=== PATIENT | male | born 1985 | race Caucasian/White ===

== ENCOUNTER 2017-10-14 01:22 | Inpatient (IN) | payer OTHER ==
[2017-10-14 02:39] LABS: #Basophils 0.1 thou/uL (0.0-0.2); #Eosinphils 0.1 thou/uL (0.0-0.7); #Monocytes 0.9 thou/uL (0.11-0.59); #Neutrophils 10.7 thou/uL (1.40-6.50); %Basophils 0.4 % (0.0-1.0); %Eosinophils 0.9 % (0.0-10.0); %Lymphocytes 14.4 % (21.0-51.0); %Monocytes 6.2 % (0.0-10.0); Hemoglobin 14.3 g/dL (14.0-18.0); Mean Corpuscular HGB CONC 33.4 g/dL (32.0-36.0); Mean Platelet Volume 6.5 fL (7.4-10.4); Platelet Count 230 thou/uL (130-400); RBC Distribution Width 12.2 % (11.5-14.5); Red Blood Cell (RBC) Count 4.92 mill/uL (4.70-6.10); White Blood Cell (WBC) Count 13.8 thou/uL (4.8-10.8)
[2017-10-14 02:58] LABS: ALT (SGPT) 29 U/L (8-55); AST (SGOT) 12 U/L (5-34); Albumin 4.4 g/dL (3.5-5.0); Alkaline Phosphatase 73 U/L (40-150); Anion Gap 12 mmol/L (10-20); BUN (Urea Nitrogen) 9 mg/dL (8.9-20.6); Bilirubin, Total 0.4 mg/dL (0.2-1.2); Calc. Creatinine Clearance 0 mL/min (70-130); Calcium 9.4 mg/dL (7.8-10.44); Carbon Dioxide 24 mmol/L (22-29); Chloride 106 mmol/L (98-107); Estimated GFR-MDRD Greater than 90; Globulin 2.2 g/dL (2.4-3.5); Glucose 105 mg/dL (70-105); Lipase 10 U/L (8-78); Potassium 4.4 mmol/L (3.5-5.1); Protein, Total 6.6 g/dL (6.0-8.3); Sodium 138 mmol/L (136-145)
[2017-10-14 04:22] LABS: Acetaminophen Less than 6.0 mcg/mL (10.0-30.0); Alcohol Less than 10 mg/dL (Less than 10); Salicylate Less than 8.0 mg/dL (15.0-30.0)
[2017-10-14 04:27] LABS: Troponin I Less than 0.010 ng/mL (< 0.028)
--- NOTE | 2017-10-14 04:42 | HP ---
REQUESTING PHYSICIAN: Dr. Graves. ATTENDING SURGEON: Dr. Michel. CONSULTATIONS: None. HISTORY OF PRESENT ILLNESS: Patient is a 31-year-old man who was reportedly running this evening down a driveway when he fell into a culvert, landing on some large rocks. The patient was initially taken to the emergency department in [place] by ground EMS because he was found by family members and stated to have a short period of altered mental status and possible loss of consciousness, abrasions, and contusions and abdominal pain. The patient underwent evaluation and examination and then was noted to have a negative head and neck CT, but his chest, abdomen, and pelvis showed changes in the right lower quadrant that upon review of the CT and dictation by the radiologist, it appears that these changes are congenital and not acute, but the patient was subsequently transferred here. Due to these findings and a possible postconcussive syndrome, at which time, we were asked to evaluate the patient for admission. While in the emergency department, the patient attempted to push himself up on the bed and essentially vagal down with a heart rate of the low 40s to one point into the 30s. The patient became symptomatic and this lasted greater than 30 minutes. The patient did not require any atropine and eventually would maintain his heart rate in the high 50s to low 60s, and his systolic blood pressure would stay above 100. The patient would undergo repeat chest, abdomen , and pelvis exam per the ER doctor's orders, the patient had a repeat negative FAST exam, his hemoglobin here was 14 and his abdominal pain had not changed. MEDICATIONS: None. ALLERGIES: None. PAST SURGICAL HISTORY: Bilateral eye surgery as an . PAST MEDICAL HISTORY: Patient has a congenitally absent corpus callosum and colpocephaly, and history of seizure disorders. Father reports that patient had 2 seizures, the last one was greater than 10 years ago. FAMILY MEDICAL HISTORY: Hypertension. REVIEW OF SYSTEMS: Ten-point review of systems is negative, unless otherwise stated. PHYSICAL EXAMINATION: VITAL SIGNS: Current vital signs heart rate 63, blood pressure 108/66, respirations 17, oxygen saturation is 100% on 2 liters via nasal cannula, temperature is 98.1. GENERAL: Upon my initial exam, he was resting comfortably. He was alert and oriented x3. Yaniv coma scale was 15. His chief complaint was diffuse abdominal pain. HEAD: Head is normocephalic. He does have small abrasion to his forehead that appears superficial in nature and did not require repair. EYES: Extraocular motion intact. PERRLA bilaterally. Patient does have an area of periorbital ecchymosis of the infraorbital area of his left eye with minimal tenderness to palpation. EARS: Atraumatic without discharge. NOSE: Atraumatic without discharge. OROPHARYNX: Clear. NECK: Nontender. Trachea is midline. No JVD. CHEST: Clear to auscultation with good inspiratory and expiratory effort. HEART: Regular rate and rhythm with some bradycardia. ABDOMEN: Primarily bilateral upper quadrant tenderness to palpation with active bowel sounds and the patient does have scattered abrasions and contusions on his anterior abdomen. Pelvis is stable. EXTREMITIES: Contusions and abrasions to both anterior knees with minimal tender to palpation. Patient has full active range of motion. Abrasions to bilateral hands with full active range of motion, and the patient is neurovascularly intact x4. BACK: Nontender and atraumatic. LABORATORY FINDINGS: White blood cell count 13.8, hemoglobin 14.3, hematocrit 42.8, platelets 230. Sodium 139, potassium 4.4, chloride 106, CO2 of 24, BUN 9 , creatinine 0.82, glucose 105. LFTs are unremarkable. Lactic acid 0.7, lipase 10. Cardiac enzymes are pending. Urine drug screen and TSH are also pending. CT findings: CT of the brain without contrast shows, 1. Agenesis of corpus callosum and colpocephaly. 2. No acute intracranial findings. CT of the C-spine without contrast shows no evidence of acute fracture or acute traumatic subluxation. CT of the chest, abdomen, and pelvis shows an aberrant right subclavian artery, otherwise unremarkable chest CT. 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 This does not appear to be an acute finding with no surrounding soft tissue changes and no extravasation of contrast. Also, of note, when the CT was done, the patient's chief complaint was left upper quadrant pain, all of these findings were in the right lower quadrant. ASSESSMENT AND PLAN: 1. Status post fall. 2. Abdominal pain with abdominal CT changes of undermined nature. 3. Postconcussive syndrome. 4. Symptomatic bradycardia likely vagal in nature. PLAN: We will await the results of the remaining lab work and repeat of his chest, abdomen, and pelvis exams. We will give him fluid hydration and also give him 1 liter of lactated Ringer's with 3 amps of sodium bicarbonate in light of his second dye load we will attempt to alkalize his urine for renal protection. Because of the prolonged episode of symptomatic bradycardia, we will admit the patient to the IMCU and follow up his labs in the morning. The case will be discussed with Dr. Michel, once I have all of his labs and radiographs back sooner as needed. DORCAS
[2017-10-14] MEDS ORDERED: Fentanyl 250 MCG/5 ML VIAL ONE (05:04)
[2017-10-14 06:03] LABS: Amphetamine Not Detected (NotDetected); Barbiturates Screen Not Detected (NotDetected); Benzodiazepine Screen Not Detected (NotDetected); Cocaine Metabolite Screen Not Detected (NotDetected); Medtox Control Line Valid? VALID (VALID); Medtox Reader # READER 1; Methadone Not Detected (NotDetected); Methamphetamine Not Detected (NotDetected); Opiate Screen Not Detected (NotDetected); Oxycodone Screen Not Detected (NotDetected); Phencyclidine (PCP) Not Detected (NotDetected); THC/Cannabinoid Screen Not Detected (NotDetected); Tricyclic Screen Not Detected (NotDetected)
[2017-10-14 06:25] LABS: INR-International Normal Ratio 1.3; PTT 27.1 SEC (22.9-36.1); Prothrombin Time 16.5 SEC (12.0-14.7)
[2017-10-14 06:28] LABS: #Eosinphils 0.1 thou/uL (0.0-0.7); #Lymphocytes 1.8 thou/uL (1.20-3.40); #Monocytes 1.1 thou/uL (0.11-0.59); #Neutrophils 13.5 thou/uL (1.40-6.50); %Basophils 0.2 % (0.0-1.0); %Eosinophils 0.4 % (0.0-10.0); %Lymphocytes 11.2 % (21.0-51.0); %Monocytes 6.5 % (0.0-10.0); %Neutrophils 81.7 % (42.0-75.0); Hemoglobin 9.9 g/dL (14.0-18.0); Mean Corpuscular HGB CONC 33.5 g/dL (32.0-36.0); Mean Corpuscular Hemoglobin 29.4 pg (27.0-31.0); Mean Corpuscular Volume 87.6 fl (80.0-94.0); Mean Platelet Volume 6.6 fL (7.4-10.4); Platelet Count 208 thou/uL (130-400); RBC Distribution Width 12.1 % (11.5-14.5); Red Blood Cell (RBC) Count 3.35 mill/uL (4.70-6.10); White Blood Cell (WBC) Count 16.5 thou/uL (4.8-10.8)
[2017-10-14] MEDS ORDERED: Propofol 1,000 MG/100 ML VIAL IV ONE (07:08)
[2017-10-14] MEDS ORDERED: Ondansetron HCl/PF 4 MG/2 ML Vial IVP PRN (07:25)
[2017-10-14] MEDS ORDERED: Dextrose 50% Abboject 50 ML SYRINGE SLOW IVP PRN (07:25)
[2017-10-14] MEDS ORDERED: Sodium Chloride 0.9% 1,000 ML IV SCH (07:25)
[2017-10-14] MEDS ORDERED: traMADol HCl 50 MG TAB PO PRN (07:25)
[2017-10-14] MEDS ORDERED: Ondansetron ODT 4 MG TAB PO PRN (07:25)
[2017-10-14] MEDS ORDERED: Ventilator Sedation Protocol 1 EACH FS SCH (07:25)
[2017-10-14] MEDS ORDERED: Promethazine HCl 25 MG/ML VIAL IM PRN ×2 (07:25)
[2017-10-14] MEDS ORDERED: Dextrose 5% in Water 1,000 ML IV PRN (07:25)
[2017-10-14] MEDS ORDERED: Propofol 1,000 MG/100 ML VIAL IV PRN (07:37)
[2017-10-14] MEDS ORDERED: Fentanyl BOLUS 250 ML IVPB PRN (07:37)
[2017-10-14] MEDS ORDERED: DISCONTINUE PREVIOUS NARCOTIC PAIN MEDICATIONS AND BENZODIAZEPINES FS SCH (07:37)
[2017-10-14] MEDS ORDERED: fentaNYL Citrate/PF 2,000 MCG in Sodium Chloride 0.9% 60 ML IV SCH (07:37)
[2017-10-14] MEDS ORDERED: Morphine 2 MG/ML SYRINGE SLOW IVP PRN (07:37)
[2017-10-14] MEDS ORDERED: Lorazepam 2 MG/ML VIAL SLOW IVP PRN (07:37)
[2017-10-14] MEDS ORDERED: Sodium Bicarbonate 150 MEQ in Dextrose 5% in Water 1,000 ML IV SCH (07:45)
[2017-10-14] MEDS ORDERED: Morphine 4 MG/ML VIAL SLOW IVP PRN ×3 (07:45→21:03)
[2017-10-14 07:57] LABS: CO2 Tension 41.1 mmHg (35.0-45.0); O2 Tension (PaO2) 102.7 mmHg (80.0-100.0)
[2017-10-14 07:58] LABS: Actual Bicarbonate (HCO3a) 19.4 mEq/L (22-26); Analyzer IN Cardio ER; Base Excess (BEa) -6.7 mEq/L (0 (+/-) 2.5); Calcium, Ionized 1.2 mmol/L (1.12-1.30); Hematocrit-ABG 31.8 % (42.0-52.0); Hemoglobin (Hb) 10.9 g/dL (14.0-18.0)
[2017-10-14 07:59] LABS: ALV-art Gradient 59.825 (0-20); Puncture Site A-LINE
--- NOTE | 2017-10-14 08:07 | CT ---
PRELIMINARY REPORT/[facility]/EMERGENCY AFTER HOURS PROCEDURE: EXAM: CT Head Without Intravenous Contrast CLINICAL HISTORY: 31 years old, male; Injury or trauma; Fall; Follow-up exam; Wound, open; Without loss of consciousnes s; Forehead; Without residual foreign body; Patient HX: 31 yo wm pmh congenitally absent corpus callo sum. Presents as transfer from [place] after falling into ditch and landing on several large anuj ks. Fall occurred approximately 2114. Denies loc. Reports midepigastric pain. Head and neck CT scan n egative. 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 COMPARISON: No relevant prior studies available. FINDINGS: Brain: Question minimal midline hyperdensity images 17-18 Mild volume loss No significant white matter disease. No edema. Ventricles: Parallel orientation with colpocephaly noted in keeping with presumed callosal dysgenesis No ventriculomegaly. Bones/joints: Unremarkable. No acute fracture. Soft tissues: Unremarkable. Sinuses: Unremarkable as visualized. No acute sinusitis. Mastoid air cells: Unremarkable as visualized. No mastoid effusion. IMPRESSION: Question minimal midline hyperdensity in image 17-18. 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 Comparison with prior images would be helpful. Otherwise, non-urgent evaluation with MRI may be helpful Thank you for allowing us to participate in the care of your patient. Dictated and Authenticated by: Hudson Longo MD 10/14/2017 4:48 AM Central Time ([place] & [place]) FINAL INTERPRETATION HEAD CT WITHOUT CONTRAST: 10/14/2017 HISTORY: Trauma. Pain. Altered mental status. COMPARISON: 10/13/2017 FINDINGS: Minimal midline hyperdensity noted on images 17 and 18, which could signify minimal small volume extr aaxial blood or vascular density. Agenesis of the corpus callosum noted. No midline shift or mass e ffect. The imaged paranasal sinuses and mastoid air cells are well aerated. No displaced calvarial fracture. IMPRESSION: 1. Findings suggesting agenesis of the corpus callosum. 2. Minimal midline hyperdensity may signify vascular density calcification or minimal extraaxial hem orrhage. This could be better assessed via a follow-up CT or MRI. POS: [facility]
[2017-10-14] MEDS ORDERED: Succinylcholine Chloride 20 MG/ML 10 ml SYRINGE FS ONE (08:10)
[2017-10-14] MEDS ORDERED: PROPOFOL 200 MG/20 ML VIAL ONE (08:10)
[2017-10-14] MEDS ORDERED: Calcium Chloride 1 GM/10 ML Abboject SYRINGE ONE (08:10)
[2017-10-14] MEDS ORDERED: Lidocaine 1% PF 5 ML VIAL ONE (08:10)
--- NOTE | 2017-10-14 08:39 | OP ---
DATE OF PROCEDURE: 10/14/2017 PREOPERATIVE DIAGNOSIS: Intraabdominal hemorrhage with hemodynamic instability. POSTOPERATIVE DIAGNOSIS: Intraabdominal hemorrhage with hemodynamic instability with finding of blee ding distal small bowel mesenteric artery. OPERATIONS PERFORMED: Exploratory laparotomy, evacuation of 2600 mL of peritoneal blood, small bowel resection with primary stapled anastomosis, placement of left subclavian 7 Moldovan triple-lumen centr al line. SURGEON: Loki Michel M.D. CHAPERONE: Alex Nesbitt PA-C ANESTHESIA: General endotracheal. INDICATIONS: The patient is a 31-year-old white male. He had fallen between 4 and 6 feet into a claire ine earlier this evening. 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 He subsequently became hemodynamically unsta ble and CT scan subsequently revealed intraabdominal hemorrhage. He was taken emergently to the oper ating room. After being transfused with 1 unit of packed red blood cell and some IV fluid, he stabil ized. He never was tachycardic, but only hypotensive. DESCRIPTION OF PROCEDURE: The patient was taken emergently to the operating room. When I arrived, h e was in the operating room and was hemodynamically stable and alert and interactive. He moved all e xtremities and had appropriate diffuse tenderness in his abdomen with examination, but without gross distention. He is somewhat overweight and therefore this could cloud the presentation picture. General endotracheal anesthesia was obtained with the patient in supine position. Attention was turn ed to his left chest. This was prepped with ChloraPrep and draped in sterile fashion. Local anesthe tic was infiltrated and large Veress needle was passed in the clavicle and subclavian vein on the ini tial pass. Guidewire was passed into the needle, which was subsequently removed. Skin was incised, tract was dilated, 7 Moldovan triple-lumen catheter was passed over the wire without difficulty. Each of the 3 lumens aspirated blood freely and was flushed with heparinized saline. Catheter secured at skin exit site. Sterile occlusive dressing was applied. Each port aspirated blood freely and was fl ushed with heparinized saline. Abdomen was trimmed of hair, prepped with ChloraPrep, draped in sterile fashion. Low midline abdomin al incision was created. Dissection was carried through skin, subcutaneous tissue down to the fascia which was opened in the midline. Entry was gained into the abdominal cavity. There was no blood un james pressure within the abdomen while entered, but there was free blood in the abdomen. The incision was opened throughout its length and the Snyder suction device was used to aspirate the blood content s. There was also significant clot present diffusely within the abdomen in both upper quadrants as w ell as a significant amount within the central mesenteric compartment. As soon as most of the blood was aspirated, I was able to quickly identify an area of hemorrhage within the distal small bowel mes entery. This was visualized to be actively arterial pulsation. There was significant hematoma withi n the mesentery of the segment of the small bowel. This was at least a foot proximal to the ileoceca l valve. I selected 2 segments of small bowel proximal and distal that I felt would be viable after this artery was divided. The small bowel was divided into these two segments using a LENA-75 stapler. The intervening mesentery was taken down between clamps and 2-0 silk ties, and the specimen was pas sed off the field. When I later examined the resection margins, I took an additional proximal margin secondary to the examination of the vascular arcades. The second margin was an additional 3 or 4 in ches. After the segment was removed, the abdomen was then fully explored. I inspected liver, spleen, stoma ch, small bowel throughout and the colon as well as all areas could be visualized and palpated. The remainder of the retroperitoneum was inspected. There was no evidence of active bleeding or extravas ation from any location. There is no evidence of other hematoma formation. The abdomen was then irr igated with 4 or 5 liters of warm saline and all irrigant was aspirated. I then inspected one final time to ensure that there was no evidence of any other bleeding. During the course of the inspection , a large volume of clot had been removed. There was about 800 mL of clot and at least 1800 mL of bl ood within the suction device that had been removed before irrigation was begun. I then created a [id number], functional end-to-end stapled anastomosis between the 2 segments of sm all bowel. The distal small bowel staple line was about 15 cm from the ileocecal valve. The common enterotomy was closed with a single fire of the LENA stapler. Mesenteric defect was closed with a run tenzin suture of 3-0 Vicryl. Staple line was buttressed with several interrupted sutures of 3-0 silk. All bowel was entirely viable without concern. The fascia was then closed with a running suture of #1 PDS. The subcutaneous tissue was thoroughly irrigated. The skin edges were loosely approximated with skin hayden with Telfa claire placed within the subcutaneous tissue and dry gauze dressing place d externally. There had been no evidence of contamination prior to division of the bowel. There had been no leakag e of bowel contents during the surgery either. There was essentially no intraoperative blood loss an d all blood found was that which was present in the abdomen at beginning the operation. The patient had remained hemodynamically stable. He was transfused with 1 additional unit of blood and 1 unit of FFP during the operation. He was taken to the Intensive Care Unit in stable condition, but still on the ventilator.
[2017-10-14] MEDS ORDERED: Famotidine 20 MG TAB PO SCH (09:00)
--- NOTE | 2017-10-14 09:08 | RAD ---
PORTABLE SUPINE FRONTAL CHEST: Date: 10/14/17 COMPARISON: None. HISTORY: Intubated patient. FINDINGS: Endotracheal tube in place, distal tip overlying the tracheal air column at the level of the clavicle s. There is a left-sided vascular catheter, distal tip overlying the cavoatrial junction region. Supi ne imaging is provided, limiting assessment for pneumothorax and pleural fluid. There is pulmonary vascular prominence. No lobar consolidation or alveolar edema. IMPRESSION: Lines and tubes as above. POS: [facility]
[2017-10-14 09:24] LABS: Anion Gap 11 mmol/L (10-20); BUN (Urea Nitrogen) 9 mg/dL (8.9-20.6); Calc. Creatinine Clearance 0 mL/min (70-130); Calcium 7.9 mg/dL (7.8-10.44); Carbon Dioxide 22 mmol/L (22-29); Chloride 110 mmol/L (98-107); Estimated GFR-MDRD Greater than 90; Glucose 204 mg/dL (70-105); Magnesium 1.8 mg/dL (1.6-2.6); Phosphorus 3.5 mg/dL (2.3-4.7); Potassium 4.1 mmol/L (3.5-5.1); Sodium 139 mmol/L (136-145)
[2017-10-14 09:53] LABS: #Lymphocytes 1.1 thou/uL (1.20-3.40); #Monocytes 1.3 thou/uL (0.11-0.59); #Neutrophils 17.2 thou/uL (1.40-6.50); %Basophils 0.1 % (0.0-1.0); %Eosinophils 0.1 % (0.0-10.0); %Lymphocytes 5.4 % (21.0-51.0); %Monocytes 6.4 % (0.0-10.0); %Neutrophils 87.9 % (42.0-75.0); Hemoglobin 10.8 g/dL (14.0-18.0); Mean Corpuscular HGB CONC 33.9 g/dL (32.0-36.0); Mean Corpuscular Hemoglobin 29.8 pg (27.0-31.0); Mean Corpuscular Volume 87.9 fl (80.0-94.0); Mean Platelet Volume 6.9 fL (7.4-10.4); Platelet Count 207 thou/uL (130-400); RBC Distribution Width 12.3 % (11.5-14.5); Red Blood Cell (RBC) Count 3.61 mill/uL (4.70-6.10); White Blood Cell (WBC) Count 19.5 thou/uL (4.8-10.8)
[2017-10-14] MEDS: Morphine 4 MG/ML VIAL SLOW IVP PRN ×2 (09:55→17:56)
[2017-10-14] MEDS: Acetaminophen 1,000 MG in Premix Bag 1 BAG IVPB SCH ×2 (09:56→13:47)
[2017-10-14] MEDS ORDERED: ISOVUE-370 76%-LOCM 1 ML ONE (10:02)
[2017-10-14 11:08] VITALS: BMI 30.4
--- NOTE | 2017-10-14 11:15 | CT ---
PRELIMINARY REPORT/[facility]/EMERGENTY AFTER-HOURS PROCEDURE EXAM: CT Abdomen and Pelvis With Intravenous Contrast CLINICAL HISTORY: 48 years old, male; Pain; Abdominal pain; Patient HX: Patient presents for evaluation of abdominal pain, patient presents for evaluation of abdominal bloating TECHNIQUE: Axial computed tomography images of the abdomen and pelvis with intravenous contrast. Coronal reformatted images were created and reviewed. CONTRAST: 85 mL of CYQ691 administered intravenously. COMPARISON: No relevant prior studies available. FINDINGS: Lower thorax: Minimal bibasilar atelectasis. Addendum created by Hudson Longo MD on 10/14/2017 5:38 AM Central Time ([place] & [place]) Aberrant right subclavian artery with normal left aortic arch is noted, a normal variant. Addendum created by Hudson Longo MD on 10/14/2017 5:09 AM Central Time ([place] & [place]) THIS REPORT CONTAINS FINDINGS THAT MAY BE CRITICAL TO PATIENT CARE. The findings were verbally communicated via telephone conference with Sumeet Graves at 5:08 AM [employer] on 10/14/2017. The findings were acknowledged and understood. Initial Report created on 10/14/2017 4:58 AM Central Time ([place] & [place]) EXAM: CT Chest With Intravenous Contrast CLINICAL HISTORY: 31 years old, male; Injury or trauma; Fall; Follow-up exam; Abrasion; Patient HX: 31 yo wm pmh congenitally absent corpus callosum. Presents as transfer from [place] after falling into ditch and landing on several large rocks. Fall occurred approximately 2114. Denies loc. Reports midepigastric pain. Head and neck CT scan negative. 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 CONTRAST: 100 mL of ISOVUE 370 administered intravenously. COMPARISON: No relevant prior studies available. FINDINGS: Lungs: Unremarkable. No mass. No consolidation. Pleural space: Unremarkable. No pneumothorax. No significant effusion. Heart: Unremarkable. No cardiomegaly. No significant pericardial effusion. Bones/joints: Unremarkable. No acute fracture. No dislocation. Soft tissues: Unremarkable. Vasculature: Unremarkable. No thoracic aortic aneurysm. Lymph nodes: Unremarkable. No enlarged lymph nodes. A small hiatal hernia is detected. IMPRESSION: No CT evidence for acute traumatic aortic injury or intrathoracic injury EXAM: CT Abdomen and Pelvis With Intravenous Contrast CLINICAL HISTORY: 31 years old, male; Injury or trauma; Fall; Follow-up exam; Abrasion; Patient HX: 31 yo wm pmh congenitally absent corpus callosum. Presents as transfer from [place] after falling into ditch and landing on several large rocks. Fall occurred approximately 2114. Denies loc. Reports midepigastric pain. Head and neck CT scan negative. 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 CONTRAST: 100 mL of ISOVUE 370 administered intravenously. COMPARISON: No relevant prior studies available. FINDINGS: ABDOMEN: Liver: Marked capsular hematoma over the liver with mild contour irregularity to the capsule in the posterior right lobe on images 53-55. Faint lacerations in the inferior right lobe cannot be complete ly excluded. No definite active bleeding Gallbladder and bile ducts: Unremarkable. No calcified stones. No ductal dilation. Pancreas: Unremarkable. No mass. No ductal dilation. Spleen: Unremarkable. No splenomegaly. Adrenals: Unremarkable. No mass. Kidneys and ureters: Unremarkable. No solid mass. No hydronephrosis. Stomach and bowel: Unremarkable. No obstruction. No mucosal thickening. Appendix: No findings to suggest acute appendicitis PELVIS: Bladder: Dense contrast noted within Reproductive: Unremarkable as visualized. ABDOMEN and PELVIS: Intraperitoneal space: Moderate hemoperitoneum. Active bleeding on images 76-81 in the right sided mesentery Bones/joints: No acute fracture. No dislocation. Soft tissues: Unremarkable. Vasculature: Unremarkable. No abdominal aortic aneurysm. Lymph nodes: Unremarkable. No enlarged lymph nodes. IMPRESSION: Right-sided mesenteric hemorrhage with active bleeding as described. Moderate hemoperitoneum Large hepatic subcapsular hematoma and possible inferior right lobe laceration. No definite active bleeding surrounding the liver Thank you for allowing us to participate in the care of your patient. Dictated and Authenticated by: Hudson Longo MD 10/14/2017 4:58 AM Central Time ([place] & [place]) FINAL REPORT CT OF CHEST AND ABDOMEN AND PELVIS PERFORMED WITH INTRAVENOUS CONTRAST ENHANCEMENT: Date: 10/14/17 HISTORY: Trauma. Patient fell into a ditch, landing on several rocks. COMPARISON: Prior day's study. FINDINGS: CT CHEST: Lungs are clear of any infiltrative process. No signs of pneumothorax. Thoracic aorta is normal in ca liber. No mediastinal or hilar adenopathy, or signs of hematoma. No rib fractures are identified. CT ABDOMEN: CT of abdomen was performed with contrast enhancement. There is a hemoperitoneum present. There is a subcapsular hematoma and what may be a small laceration involving the inferior aspect of the right lo be of the liver where the margin is somewhat indistinct. The blood appears centered around what appea rs to be an actively bleeding site within the mesentery on the right mid abdomen. This is a significa nt change since the previous examination where there is only some minimal fat stranding related to th is. The ascites is of mixed attenuation consistent with blood. The spleen, pancreas, and gallbladder regions are felt to be unremarkable. There is some slight incre ased attenuation within the gallbladder lumen. I cannot exclude sludge or small stones. Right and left adrenal glands, and right and left kidneys are normal. CT PELVIS: CT of pelvis was performed with contrast enhancement. There are some prostate calcifications. The tamanna dder is normal in appearance. CT THORACIC SPINE: CT of the thoracic spine performed with contrast is unremarkable. CT LUMBAR SPINE: CT of the lumbar spine performed with contrast is unremarkable. IMPRESSION: 1. Large hemoperitoneum, which appears to be related to an actively bleeding site within the small b owel mesentery in the right mid abdomen. 2. In addition, there is what appears to be subcapsular hematoma involving the liver. The inferior m argin of the liver is slightly indistinct and could indicate a small liver laceration. This report is in agreement with the preliminary report issued by [facility]. POS: [facility]
[2017-10-14 14:26] LABS: Anion Gap 10 mmol/L (10-20); BUN (Urea Nitrogen) 9 mg/dL (8.9-20.6); Calc. Creatinine Clearance 203 mL/min (70-130); Calcium 7.9 mg/dL (7.8-10.44); Carbon Dioxide 25 mmol/L (22-29); Chloride 106 mmol/L (98-107); Estimated GFR-MDRD Greater than 90; Glucose 146 mg/dL (70-105); Potassium 3.7 mmol/L (3.5-5.1); Sodium 137 mmol/L (136-145)
[2017-10-14] MEDS: Sodium Chloride 0.9% 1,000 ML IV SCH ×2 (15:55→23:54)
--- NOTE | 2017-10-14 18:07 | PRG ---
DATE OF SERVICE: 10/14/2017 ATTENDING PHYSICIAN: Dr. Wilfredo Méndez. SUBJECTIVE: Mr. Walters is a 31-year-old male who was admitted overnight after suffering a 4-6 feet fall into a culvert, landing on some rocks. 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 However, the patient became hemodynamically unstable. Repeat CT scan showed large volume of blood in the abdomen. He was taken to the OR for exploratory laparotomy. He had a small bowel resection secondary to a mesenteric artery bleed. He was admitted to the ICU. This morning, on exam, the patient is intubated, but opening his eyes and able to follow commands. He was extubated at bedside. OBJECTIVE: VITAL SIGNS: BP 133/74, pulse 79, temperature 98.1, respirations 16 on mechanical ventilation. GENERAL APPEARANCE: The patient is an adult male resting in bed. He is now extubated. He is still somewhat somnolent. HEENT: He is normocephalic. He has a small abrasion to his forehead that is not sutured. RESPIRATORY: The patient's breath sounds are clear to auscultation bilaterally. He is on a mechanical ventilator. CARDIOVASCULAR: He has a regular rate and rhythm. No murmurs, gallops or rubs. ABDOMEN: Surgical incision is covered. Dressing appears clean and intact. EXTREMITIES: The patient moves all extremities. He is neurovascularly intact x4. NEUROLOGIC: The patient has no focal deficits. His GCS is 15. LABORATORY DATA: Hematology: WBC is 19.5, hemoglobin 10.8, hematocrit 31.7, platelets 207. Coagulation: PT 16.5, INR 1.3, PTT 27.1. Arterial blood gas: Bicarb 19.4, pH 7.3, pCO2 41.1, pO2 102.7, base excess -6.7. Chemistry: Sodium 139, potassium 4.1, chloride 110, bicarbonate 22, BUN 9, creatinine 0.76 , glucose 204, calcium 7.9, phosphorus 3.5, magnesium 1.8. Toxicology: His toxicology screen was negative. IMAGING: Chest x-ray: Endotracheal tube in place, distal tip overlying the tracheal air column at the level of the clavicles. There is left-sided vascular catheter, distal tip overlying the cavoatrial junction region. Supine imaging is provided, limiting assessment for pneumothorax and pleural fluid. ASSESSMENT AND PLAN: 1. Status post fall from 4-6 feet. 2. Mesenteric artery injury. 3. Status post partial small bowel resection. 4. Postconcussive syndrome. 5. Acute traumatic insert and postsurgical pain. PLAN: 1. The patient extubated at bedside this morning. 2. Bicarbonate drip at 150 mL per hour. 3. We will recheck chemistry this afternoon after his bicarbonate drip is finished and then reassess fluid needs from there. 4. The patient should be out of bed to chair as possible today. The patient should use incentive spirometry. 5. The patient will continue to be n.p.o. Anticipate that he may eat tomorrow. This patient was seen and examined along with Dr. Wilfredo Méndez on rounds this morning, who agrees with the assessment and plan. DORCAS
[2017-10-14] MEDS ORDERED: Famotidine/PF 20 mg/2ml Vial SLOW IVP SCH (21:00)
[2017-10-14] MEDS: Famotidine 40 MG/4 ML VIAL SLOW IVP SCH (21:23)
[2017-10-14] MEDS ORDERED: Acetaminophen 1,000 MG in Premix Bag 1 BAG IVPB SCH (23:59)
[2017-10-15] MEDS: Acetaminophen 1,000 MG in Premix Bag 1 BAG IVPB SCH ×4 (02:00→20:26)
[2017-10-15 04:57] LABS: Anion Gap 9 mmol/L (10-20); BUN (Urea Nitrogen) 9 mg/dL (8.9-20.6); Calc. Creatinine Clearance 208 mL/min (70-130); Calcium 8.1 mg/dL (7.8-10.44); Carbon Dioxide 27 mmol/L (22-29); Chloride 109 mmol/L (98-107); Estimated GFR-MDRD Greater than 90; Glucose 104 mg/dL (70-105); Magnesium 1.8 mg/dL (1.6-2.6); Phosphorus 2.8 mg/dL (2.3-4.7); Potassium 3.5 mmol/L (3.5-5.1); Sodium 141 mmol/L (136-145)
[2017-10-15 06:49] LABS: #Monocytes 1.3 thou/uL (0.11-0.59); %Basophils 0.1 % (0.0-1.0); %Eosinophils 0.3 % (0.0-10.0); %Monocytes 13.8 % (0.0-10.0); %Neutrophils 64.8 % (42.0-75.0); Hemoglobin 8.4 g/dL (14.0-18.0); Mean Corpuscular HGB CONC 33.6 g/dL (32.0-36.0); Mean Corpuscular Hemoglobin 29.5 pg (27.0-31.0); Mean Corpuscular Volume 87.8 fl (80.0-94.0); Platelet Count 167 thou/uL (130-400); RBC Distribution Width 12.6 % (11.5-14.5); Red Blood Cell (RBC) Count 2.84 mill/uL (4.70-6.10); White Blood Cell (WBC) Count 9.3 thou/uL (4.8-10.8)
[2017-10-15] MEDS: Morphine 4 MG/ML VIAL SLOW IVP PRN ×2 (08:04→12:22)
[2017-10-15] MEDS: Sodium Chloride 0.9% 1,000 ML IV SCH ×3 (08:07→20:26)
[2017-10-15] MEDS: Famotidine 40 MG/4 ML VIAL SLOW IVP SCH ×2 (08:46→20:26)
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
[2017-10-15] MEDS ORDERED: Sodium Chloride 0.9% 500 ML IVPB SCH (18:30)
[2017-10-16] MEDS: Morphine 4 MG/ML VIAL SLOW IVP PRN (01:01)
[2017-10-16] MEDS: Sodium Chloride 0.9% 1,000 ML IV SCH ×2 (01:01→21:28)
[2017-10-16] MEDS: Acetaminophen 1,000 MG in Premix Bag 1 BAG IVPB SCH (03:50)
[2017-10-16] MEDS: Famotidine 40 MG/4 ML VIAL SLOW IVP SCH (09:03)
[2017-10-16] MEDS ORDERED: Morphine 4 MG/ML VIAL SLOW IVP PRN (10:04)
[2017-10-16 10:42] LABS: #Eosinphils 0.1 thou/uL (0.0-0.7); #Lymphocytes 1.6 thou/uL (1.20-3.40); #Monocytes 0.8 thou/uL (0.11-0.59); #Neutrophils 7.5 thou/uL (1.40-6.50); %Basophils 0.3 % (0.0-1.0); %Eosinophils 1.1 % (0.0-10.0); %Lymphocytes 15.7 % (21.0-51.0); %Neutrophils 74.9 % (42.0-75.0); Hemoglobin 8.3 g/dL (14.0-18.0); Mean Corpuscular HGB CONC 32.3 g/dL (32.0-36.0); Mean Corpuscular Hemoglobin 28.8 pg (27.0-31.0); Mean Corpuscular Volume 89.1 fl (80.0-94.0); Mean Platelet Volume 6.6 fL (7.4-10.4); Platelet Count 174 thou/uL (130-400); RBC Distribution Width 12.3 % (11.5-14.5); Red Blood Cell (RBC) Count 2.88 mill/uL (4.70-6.10)
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
[2017-10-16 11:08] LABS: Anion Gap 14 mmol/L (10-20); BUN (Urea Nitrogen) 5 mg/dL (8.9-20.6); Calc. Creatinine Clearance 242 mL/min (70-130); Calcium 8.5 mg/dL (7.8-10.44); Carbon Dioxide 19 mmol/L (22-29); Chloride 109 mmol/L (98-107); Estimated GFR-MDRD Greater than 90; Glucose 84 mg/dL (70-105); Magnesium 1.8 mg/dL (1.6-2.6); Phosphorus 1.9 mg/dL (2.3-4.7); Potassium 3.3 mmol/L (3.5-5.1); Sodium 139 mmol/L (136-145)
[2017-10-16] MEDS ORDERED: Potassium Phosphate 9 MMOL in Sodium Chloride 0.9% 250 ML 250 ML IVPB SCH (12:00)
[2017-10-16] MEDS ORDERED: Sodium Chloride 0.9% 1,000 ML IV SCH (18:54)
[2017-10-16] MEDS: Ascorbic Acid 500 mg Chewable Tablet PO SCH (20:02)
[2017-10-16] MEDS: Famotidine/PF 20 mg/2ml Vial SLOW IVP SCH (20:02)
[2017-10-17 04:30] LABS: Anion Gap 12 mmol/L (10-20); BUN (Urea Nitrogen) 5 mg/dL (8.9-20.6); Calc. Creatinine Clearance 231 mL/min (70-130); Calcium 8.7 mg/dL (7.8-10.44); Carbon Dioxide 19 mmol/L (22-29); Chloride 110 mmol/L (98-107); Estimated GFR-MDRD Greater than 90; Glucose 87 mg/dL (70-105); Magnesium 1.9 mg/dL (1.6-2.6); Potassium 3.4 mmol/L (3.5-5.1); Sodium 138 mmol/L (136-145)
[2017-10-17] MEDS ORDERED: Potassium Chloride 20 MEQ/100 ML PREMIX BAG IVPB SCH (07:15)
[2017-10-17] MEDS: Famotidine/PF 20 mg/2ml Vial SLOW IVP SCH (08:25)
[2017-10-17] MEDS: Ferrous Sulfate 325 MG TAB PO SCH ×2 (08:25→17:32)
[2017-10-17] MEDS: Ascorbic Acid 500 mg Chewable Tablet PO SCH ×2 (08:25→21:31)
[2017-10-17] MEDS ORDERED: Enoxaparin Sodium 40 MG/0.4 ML SYRINGE SC SCH ×2 (09:00→10:45)
[2017-10-17] MEDS ORDERED: Amlodipine 5 MG TAB PO SCH (10:45)
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
[2017-10-17 19:03] LABS: Anion Gap 10 mmol/L (10-20); BUN (Urea Nitrogen) 4 mg/dL (8.9-20.6); Calc. Creatinine Clearance 246 mL/min (70-130); Calcium 8.6 mg/dL (7.8-10.44); Carbon Dioxide 24 mmol/L (22-29); Chloride 107 mmol/L (98-107); Estimated GFR-MDRD Greater than 90; Glucose 97 mg/dL (70-105); Phosphorus 2.1 mg/dL (2.3-4.7); Potassium 3.2 mmol/L (3.5-5.1); Sodium 138 mmol/L (136-145)
[2017-10-17] MEDS: Famotidine 20 MG TAB PO SCH (21:31)
[2017-10-18] MEDS ORDERED: traMADol HCl 50 MG TAB PO PRN ×2 (07:09)
[2017-10-18] MEDS ORDERED: Acetaminophen 500 MG TAB PO PRN (07:09)
[2017-10-18] MEDS: Ascorbic Acid 500 mg Chewable Tablet PO SCH (08:01)
[2017-10-18] MEDS: Famotidine 20 MG TAB PO SCH (08:01)
[2017-10-18] MEDS: Ferrous Sulfate 325 MG TAB PO SCH (08:01)
[2017-10-18] MEDS ORDERED: Furosemide 20 MG TAB PO SCH (08:15)
[2017-10-18 09:00] LABS: Anion Gap 11 mmol/L (10-20); BUN (Urea Nitrogen) 5 mg/dL (8.9-20.6); Calc. Creatinine Clearance 242 mL/min (70-130); Calcium 8.7 mg/dL (7.8-10.44); Carbon Dioxide 25 mmol/L (22-29); Chloride 106 mmol/L (98-107); Estimated GFR-MDRD Greater than 90; Glucose 96 mg/dL (70-105); Magnesium 1.6 mg/dL (1.6-2.6); Phosphorus 3.2 mg/dL (2.3-4.7); Potassium 2.9 mmol/L (3.5-5.1); Sodium 139 mmol/L (136-145)
[2017-10-18] MEDS ORDERED: Enoxaparin Sodium 40 MG/0.4 ML SYRINGE SC SCH (09:00)
[2017-10-18] MEDS ORDERED: Amlodipine 5 MG TAB PO SCH ×2 (09:00)
[2017-10-18] MEDS ORDERED: MAGNESIUM SULFATE IVPB SCH (09:30)
[2017-10-18] MEDS ORDERED: [UNRECOGNIZED DRUG - OTHER] IVPB SCH (09:30)
[2017-10-18] MEDS ORDERED: POTASSIUM CHLORIDE IVPB SCH (09:30)
[2017-10-18] MEDS ORDERED: ADMIXTURE FEE IVPB SCH (09:30)
[2017-10-18 11:29] VITALS: BP 133/82; TEMP 97.9
[2017-10-19] MEDS ORDERED: Amlodipine 5 MG TAB PO SCH (09:00)
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
[2017-10-20 12:11] LABS: Actual Bicarbonate (HCO3a) 19.1 mEq/L (22-26); CO2 Tension 40.7 mmHg (35.0-45.0); Hematocrit-ABG 29.7 % (42.0-52.0); Hemoglobin (Hb) 10.3 g/dL (14.0-18.0); O2 Tension (PaO2) 438.7 mmHg (80.0-100.0); pH, Arterial 7.29 (7.35-7.45)
[2017-10-20 12:12] LABS: Actual Bicarbonate (HCO3a) 18.4 mEq/L (22-26); Base Excess (BEa) -6.8 mEq/L (0 (+/-) 2.5); CO2 Tension 35.5 mmHg (35.0-45.0); Hematocrit-ABG 29.6 % (42.0-52.0); O2 Tension (PaO2) 166.9 mmHg (80.0-100.0); pH, Arterial 7.33 (7.35-7.45)
[2017-10-20 12:12] LABS: Analyzer IN Cardio OR; Calcium, Ionized 1.4 mmol/L (1.12-1.30); Puncture Site ALINE
[2017-10-20 12:13] LABS: Analyzer IN Cardio OR; Calcium, Ionized 1.2 mmol/L (1.12-1.30); Puncture Site ALINE
--- NOTE | 2017-10-27 15:19 | EKG ---
Test Reason : Blood Pressure : / mmHG Vent. Rate : 056 BPM Atrial Rate : 056 BPM P-R Int : 162 ms QRS Dur : 096 ms QT Int : 422 ms P-R-T Axes : 067 019 029 degrees QTc Int : 407 ms Sinus bradycardia Abnormal ECG Confirmed by ROSARIO MAO D.O. ([id number]), editor book JORGE L MERCER ([id number]) on 10/27/2017 3:18:45 PM Referred By: Confirmed By:ROSARIO MAO D.O.
== END 2017-10-18 15:17 | disposition home or self-care (01) | DRG 987 ==
LOC: ERS 01:22 → IMCU/EMU 04:11 → CCU 05:47 → SURG A 10-15 10:28
PROVIDERS: ADMIT Specialist; ATTEND Specialist
PROC: 0DBB0ZZ Excision of Ileum, Open Approach (ICD-10-PCS; principal; 2017-10-14)
DX: S35.229A Unspecified injury of superior mesenteric artery, initial encounter (principal); Q04.0 Congenital malformations of corpus callosum; E83.39 Other disorders of phosphorus metabolism; F07.81 Postconcussional syndrome; E87.6 Hypokalemia; R00.1 Bradycardia, unspecified; W17.89XA Other fall from one level to another, initial encounter
CPT/HCPCS: 36415; 36416; 36430; 51702; 70450; 71045; 71260; 74177; 80048; 80053; 80306; 80307; 82553; 82805; 83605; 83690; 83735; 84100; 84443; 84484; 85025; 85610; 85730; 86850; 86900; 86901; 88307; 93005; 94002; 94760; 96360; 96361; 99292; A4216; G0390; G8978-GP-CJ; G8979-GP-CI; G8987-GO-CK; G8988-GO-CI; J0131; J1650; J2001; J2270; J2405; J2704; J3010; J3475; J3480; J7050; J7070; P9016; P9059; S0028

== ENCOUNTER 2018-12-26 23:01 | Emergency (ER) | payer OTHER ==
--- NOTE | 2018-12-26 23:27 | RAD ---
EXAM: CHEST ONE VIEW HISTORY: Chest tightness COMPARISON: 10/14/2017 FINDINGS: The cardiac silhouette and pulmonary vasculature is within normal limits. The lungs are clear. The os seous structures are intact. Previously noted lines and tubes on prior study have been removed. IMPRESSION: No acute cardiopulmonary process.
[2018-12-26 23:39] LABS: #Eosinphils 0.1 thou/uL (0.0-0.7); #Lymphocytes 2.7 thou/uL (1.20-3.40); #Monocytes 1.2 thou/uL (0.11-0.59); #Neutrophils 5.7 thou/uL (1.40-6.50); %Basophils 0.5 % (0.0-1.0); %Eosinophils 1.2 % (0.0-10.0); %Lymphocytes 27.6 % (21.0-51.0); %Monocytes 11.8 % (0.0-10.0); %Neutrophils 58.8 % (42.0-75.0); Hemoglobin 14.4 g/dL (14.0-18.0); Mean Corpuscular HGB CONC 34.8 g/dL (32.0-36.0); Mean Corpuscular Hemoglobin 30.4 pg (27.0-31.0); Mean Corpuscular Volume 87.3 fL (78.0-98.0); Mean Platelet Volume 6.9 fL (7.4-10.4); Platelet Count 239 thou/uL (130-400); Red Blood Cell (RBC) Count 4.75 mill/uL (4.70-6.10); White Blood Cell (WBC) Count 9.7 thou/uL (4.8-10.8)
[2018-12-27 00:03] LABS: ALT (SGPT) 27 U/L (8-55); AST (SGOT) 11 U/L (5-34); Albumin 4.7 g/dL (3.5-5.0); Alkaline Phosphatase 86 U/L (40-150); Anion Gap 14 mmol/L (10-20); BUN (Urea Nitrogen) 17 mg/dL (8.9-20.6); Bilirubin, Total 0.5 mg/dL (0.2-1.2); Calc. Creatinine Clearance 0 mL/min (70-130); Calcium 9.7 mg/dL (7.8-10.44); Carbon Dioxide 22 mmol/L (22-29); Chloride 106 mmol/L (98-107); Estimated GFR-MDRD Greater than 90; Glucose 124 mg/dL (70-105); Potassium 3.5 mmol/L (3.5-5.1); Protein, Total 6.7 g/dL (6.0-8.3); Sodium 138 mmol/L (136-145)
== END 2018-12-27 00:18 | disposition home or self-care (01) ==
LOC: ERS 23:01
DX: R07.89 Other chest pain (principal); F17.210 Nicotine dependence, cigarettes, uncomplicated
CPT/HCPCS: 36415; 71045; 80053; 84484; 85025; 85379; 93005; 94760

== ENCOUNTER 2020-10-08 17:55 | Inpatient (IN) | payer OTHER ==
[~2020-10-08 17:55] MED LIST: Iopamidol-370 76% 500 ML 1 ML ONE
[2020-10-08] MEDS ORDERED: Fentanyl 100 MCG/2 ML VIAL ONE (18:04)
[2020-10-08 18:34] LABS: #Basophils 0.1 thou/uL (0.0-0.2); #Eosinphils 0.2 thou/uL (0.0-0.7); #Lymphocytes 2.6 thou/uL (1.20-3.40); #Monocytes 1.6 thou/uL (0.11-0.59); #Neutrophils 15.2 thou/uL (1.40-6.50); %Basophils 0.5 % (0.0-1.0); %Eosinophils 0.8 % (0.0-10.0); %Lymphocytes 13.4 % (21.0-51.0); %Monocytes 8.2 % (0.0-10.0); %Neutrophils 77.2 % (42.0-75.0); Hemoglobin 14.4 g/dL (14.0-18.0); Mean Corpuscular HGB CONC 34.7 g/dL (32.0-36.0); Mean Corpuscular Hemoglobin 30.6 pg (27.0-31.0); Mean Corpuscular Volume 88.3 fL (78.0-98.0); Mean Platelet Volume 6.9 fL (7.4-10.4); Platelet Count 269 thou/uL (130-400); RBC Distribution Width 12.6 % (11.5-14.5); Red Blood Cell (RBC) Count 4.71 mill/uL (4.70-6.10); White Blood Cell (WBC) Count 19.7 thou/uL (4.8-10.8)
[2020-10-08] MEDS ORDERED: TETANUS AND DIPHTHERIA TOX/PF 0.5 ML DISP.SYRIN ONE (18:44)
[2020-10-08] MEDS ORDERED: Dextrose 50% Abboject 50 ML SYRINGE SLOW IVP PRN (18:51)
[2020-10-08] MEDS ORDERED: Ondansetron PF 4 MG/2 ML Vial IVP PRN (18:51)
[2020-10-08] MEDS ORDERED: Ondansetron ODT 4 MG TAB PO PRN (18:51)
[2020-10-08] MEDS ORDERED: Dextrose 5% in Water 1,000 ML IV PRN (18:51)
[2020-10-08] MEDS ORDERED: Ibuprofen 200 MG TAB PO PRN (18:55)
[2020-10-08 18:57] LABS: ALT (SGPT) 43 U/L (8-55); AST (SGOT) 17 U/L (5-34); Albumin 4.3 g/dL (3.5-5.0); Alkaline Phosphatase 89 U/L (40-110); Anion Gap 17 mmol/L (10-20); BUN (Urea Nitrogen) 12 mg/dL (8.9-20.6); Bilirubin, Total 0.3 mg/dL (0.2-1.2); Calc. Creatinine Clearance 0 mL/min (70-130); Calcium 9.3 mg/dL (7.8-10.44); Carbon Dioxide 18 mmol/L (22-29); Chloride 110 mmol/L (98-107); Globulin 3.1 g/dL (2.4-3.5); Glucose 95 mg/dL (70-105); Lipase 38 U/L (8-78); Potassium 4.4 mmol/L (3.5-5.1); Protein, Total 7.4 g/dL (6.0-8.3); Sodium 141 mmol/L (136-145)
[2020-10-08 19:15] LABS: Phosphorus 1.7 mg/dL (2.3-4.7)
[2020-10-08] MEDS ORDERED: Morphine 4 MG/ML VIAL ONE ×2 (19:19→21:34)
[2020-10-08 20:02] LABS: Bilirubin Negative (Negative); Blood, Urine Negative (Negative); Clarity Clear (Clear); Glucose, Urine (Dipstick) Normal (Negative); Ketone, Urine Negative (Negative); Leukocyte Negative Leu/uL (Negative); Nitrite Negative (Negative); Protein, Urine (Dipstick) Negative (Neg-Trace); Urobilinogen Normal mg/dL (Less than 2); pH, Urine 5.5 (5.0-9.0)
[2020-10-08 20:03] LABS: Specific Gravity, Urine 1.048 (1.002-1.036)
[2020-10-08] MEDS ORDERED: Ondansetron PF 4 MG/2 ML Vial ONE (21:34)
[2020-10-08] MEDS: Gabapentin 300 MG CAP PO SCH (23:42)
[2020-10-08] MEDS: Famotidine 20 MG TAB PO SCH (23:42)
[2020-10-08] MEDS: Acetaminophen 325 MG TAB PO SCH (23:43)
[2020-10-08] MEDS: traMADol HCl 50 MG TAB PO SCH (23:43)
[2020-10-08] MEDS: Nicotine 14 MG PATCH TD SCH (23:44)
[2020-10-08] MEDS: traMADol HCl 50 MG TAB PO PRN (23:44)
[2020-10-08] MEDS: Lactated Ringer's 1,000 ML IV SCH (23:45)
[2020-10-08] MEDS: Famotidine/PF 20 mg/2ml Vial SLOW IVP SCH (23:45)
[2020-10-08] MEDS ORDERED: Sodium Phosphate 30 MMOL in Sodium Chloride 0.9% 250 ML 250 ML IVPB SCH (23:59)
[2020-10-09] MEDS: Morphine 2 MG/ML VIAL SLOW IVP PRN ×5 (01:03→18:38)
[2020-10-09] MEDS: Acetaminophen 325 MG TAB PO SCH ×5 (01:57→23:29)
[2020-10-09 02:06] VITALS: BMI 33.5
[2020-10-09 04:42] LABS: SARS-CoV-2 PCR by NAA Not Detected (NotDetected)
[2020-10-09] MEDS: traMADol HCl 50 MG TAB PO SCH ×4 (05:36→23:28)
[2020-10-09] MEDS: traMADol HCl 50 MG TAB PO PRN ×2 (05:37→22:29)
[2020-10-09 05:56] LABS: #Basophils 0.1 thou/uL (0.0-0.2); #Eosinphils 0.1 thou/uL (0.0-0.7); #Lymphocytes 2.6 thou/uL (1.20-3.40); #Monocytes 1.8 thou/uL (0.11-0.59); #Neutrophils 8.8 thou/uL (1.40-6.50); %Basophils 0.4 % (0.0-1.0); %Eosinophils 0.9 % (0.0-10.0); %Lymphocytes 19.4 % (21.0-51.0); %Monocytes 13.4 % (0.0-10.0); Hemoglobin 12.6 g/dL (14.0-18.0); Mean Corpuscular HGB CONC 35.2 g/dL (32.0-36.0); Mean Corpuscular Hemoglobin 31.2 pg (27.0-31.0); Mean Corpuscular Volume 88.7 fL (78.0-98.0); Mean Platelet Volume 6.8 fL (7.4-10.4); Platelet Count 247 thou/uL (130-400); RBC Distribution Width 12.5 % (11.5-14.5); Red Blood Cell (RBC) Count 4.03 mill/uL (4.70-6.10); White Blood Cell (WBC) Count 13.4 thou/uL (4.8-10.8)
[2020-10-09] MEDS: Lactated Ringer's 1,000 ML IV SCH ×2 (06:23→17:54)
[2020-10-09 06:26] LABS: Anion Gap 15 mmol/L (10-20); BUN (Urea Nitrogen) 9 mg/dL (8.9-20.6); Calc. Creatinine Clearance 205 mL/min (70-130); Calcium 8.2 mg/dL (7.8-10.44); Carbon Dioxide 19 mmol/L (22-29); Chloride 107 mmol/L (98-107); Glucose 108 mg/dL (70-105); Magnesium 1.8 mg/dL (1.6-2.6); Phosphorus 3.5 mg/dL (2.3-4.7); Potassium 3.5 mmol/L (3.5-5.1); Sodium 137 mmol/L (136-145)
[2020-10-09] MEDS: Cyclobenzaprine 10 MG TAB PO PRN (07:45)
[2020-10-09] MEDS: Famotidine 20 MG TAB PO SCH ×2 (07:46→20:06)
[2020-10-09] MEDS: Gabapentin 300 MG CAP PO SCH ×3 (07:46→20:06)
[2020-10-09] MEDS: Famotidine/PF 20 mg/2ml Vial SLOW IVP SCH ×2 (07:50→20:07)
[2020-10-09] MEDS: Polyethylene Glycol 3350 17 GM Packet PO SCH (07:55)
[2020-10-09] MEDS ORDERED: CEFAZOLIN 2 GM in Premix Bag 1 BAG IVPB SCH (08:15)
[2020-10-09] MEDS ORDERED: FLU VACC QS2020-21(6MOS UP)/PF 60 MCG/0.5 ML SYRINGE IM ONE (09:00)
[2020-10-09] MEDS: hydrALAZINE 20 MG/ML VIAL SLOW IVP PRN (12:57)
[2020-10-09] MEDS: Nicotine 14 MG PATCH TD SCH (21:29)
[2020-10-10] MEDS: Morphine 2 MG/ML VIAL SLOW IVP PRN (03:01)
[2020-10-10] MEDS: Lactated Ringer's 1,000 ML IV SCH (03:01)
[2020-10-10] MEDS: Acetaminophen 325 MG TAB PO SCH ×4 (05:10→23:49)
[2020-10-10] MEDS: traMADol HCl 50 MG TAB PO SCH ×4 (05:10→23:49)
[2020-10-10] MEDS: traMADol HCl 50 MG TAB PO PRN ×2 (08:37→19:20)
[2020-10-10] MEDS: Cyclobenzaprine 10 MG TAB PO PRN (08:37)
[2020-10-10] MEDS ORDERED: Morphine 2 MG/ML VIAL SLOW IVP PRN (09:01)
[2020-10-10] MEDS ORDERED: Ibuprofen 200 MG TAB PO PRN (09:01)
[2020-10-10] MEDS: Gabapentin 300 MG CAP PO SCH ×3 (09:14→20:56)
[2020-10-10] MEDS: Famotidine 20 MG TAB PO SCH ×2 (09:16→20:56)
[2020-10-10] MEDS: Polyethylene Glycol 3350 17 GM Packet PO SCH (09:17)
[2020-10-10] MEDS ORDERED: Fentanyl 100 MCG/2 ML VIAL ONE ×3 (14:00→17:26)
[2020-10-10] MEDS ORDERED: Midazolam HCl 2 mg/2 ml Vial ONE (14:00)
[2020-10-10] MEDS ORDERED: HYDROmorphone 2 MG/ML VIAL ONE (14:17)
[2020-10-10] MEDS ORDERED: Dexamethasone 20 MG/5 ML VIAL ONE (14:17)
[2020-10-10] MEDS ORDERED: Lidocaine 1% PF 5 ML VIAL ONE (14:17)
[2020-10-10] MEDS ORDERED: Glycopyrrolate 0.2 MG/ML 5 ML SYRINGE ONE (14:17)
[2020-10-10] MEDS ORDERED: Rocuronium Bromide 10 MG/ML (10ML VIAL) ONE (14:17)
[2020-10-10] MEDS ORDERED: PROPOFOL 200 MG/20 ML VIAL ONE (14:17)
[2020-10-10] MEDS ORDERED: Ondansetron HCl/PF 4 MG/2 ML Vial IVP PRN ×2 (16:44→16:45)
[2020-10-10] MEDS ORDERED: Promethazine HCl 25 MG/ML VIAL IM PRN ×2 (16:44→16:45)
[2020-10-10] MEDS ORDERED: Promethazine HCl 25 MG/ML VIAL SLOW IVP PRN ×2 (16:44→16:45)
[2020-10-10] MEDS ORDERED: Meperidine HCl/PF 25 MG/ML VIAL ONE (16:45)
[2020-10-10] MEDS ORDERED: Meperidine HCl/PF 25 MG/ML VIAL SLOW IVP PRN ×2 (16:45)
[2020-10-10] MEDS ORDERED: Morphine 4 MG/ML VIAL SLOW IVP PRN (19:53)
[2020-10-10] MEDS: Nicotine 14 MG PATCH TD SCH (20:57)
[2020-10-10] MEDS: CEFAZOLIN 2 GM in Premix Bag 1 BAG IVPB SCH (20:57)
[2020-10-11] MEDS: Acetaminophen 325 MG TAB PO SCH ×4 (05:39→23:44)
[2020-10-11] MEDS: traMADol HCl 50 MG TAB PO SCH ×4 (05:39→23:44)
[2020-10-11] MEDS: CEFAZOLIN 2 GM in Premix Bag 1 BAG IVPB SCH ×3 (05:39→21:25)
[2020-10-11] MEDS: Cyclobenzaprine 10 MG TAB PO PRN ×2 (08:31→21:27)
[2020-10-11] MEDS: Gabapentin 300 MG CAP PO SCH ×3 (08:32→21:25)
[2020-10-11] MEDS: Famotidine 20 MG TAB PO SCH ×2 (08:32→21:25)
[2020-10-11] MEDS: Ibuprofen 200 MG TAB PO SCH ×3 (08:33→23:43)
[2020-10-11] MEDS: Polyethylene Glycol 3350 17 GM Packet PO SCH (08:34)
[2020-10-11] MEDS: Enoxaparin Sodium 40 MG/0.4 ML SYRINGE SC SCH (08:34)
[2020-10-11] MEDS ORDERED: Aspirin 81 mg Enteric Coated Tablet PO SCH (09:00)
[2020-10-11 09:16] LABS: #Lymphocytes 1.4 thou/uL (1.20-3.40); #Monocytes 2.2 thou/uL (0.11-0.59); #Neutrophils 12.6 thou/uL (1.40-6.50); %Basophils 0.2 % (0.0-1.0); %Eosinophils 0.1 % (0.0-10.0); %Lymphocytes 8.4 % (21.0-51.0); %Monocytes 13.7 % (0.0-10.0); %Neutrophils 77.5 % (42.0-75.0); Hemoglobin 10.8 g/dL (14.0-18.0); Mean Corpuscular HGB CONC 33.8 g/dL (32.0-36.0); Mean Corpuscular Hemoglobin 30.2 pg (27.0-31.0); Mean Corpuscular Volume 89.2 fL (78.0-98.0); Platelet Count 236 thou/uL (130-400); RBC Distribution Width 12.5 % (11.5-14.5); Red Blood Cell (RBC) Count 3.59 mill/uL (4.70-6.10); White Blood Cell (WBC) Count 16.2 thou/uL (4.8-10.8)
[2020-10-11] MEDS: traMADol HCl 50 MG TAB PO PRN ×2 (11:41→23:47)
[2020-10-11] MEDS: Nicotine 14 MG PATCH TD SCH (21:25)
[2020-10-12] MEDS: traMADol HCl 50 MG TAB PO SCH ×2 (05:31→11:36)
[2020-10-12] MEDS: Acetaminophen 325 MG TAB PO SCH ×4 (05:32→23:55)
[2020-10-12] MEDS: CEFAZOLIN 2 GM in Premix Bag 1 BAG IVPB SCH ×3 (05:32→21:15)
[2020-10-12] MEDS: traMADol HCl 50 MG TAB PO PRN ×2 (08:31→16:21)
[2020-10-12] MEDS: Gabapentin 300 MG CAP PO SCH ×3 (08:32→21:15)
[2020-10-12] MEDS: Ibuprofen 200 MG TAB PO SCH ×3 (08:32→23:55)
[2020-10-12] MEDS: Polyethylene Glycol 3350 17 GM Packet PO SCH (08:33)
[2020-10-12] MEDS: Enoxaparin Sodium 40 MG/0.4 ML SYRINGE SC SCH (08:34)
[2020-10-12] MEDS: Famotidine 20 MG TAB PO SCH ×2 (08:34→21:14)
[2020-10-12] MEDS: Docusate Sodium 100 MG/10 ML UDCUP PO SCH ×2 (08:34→21:14)
[2020-10-12] MEDS: Cyclobenzaprine 10 MG TAB PO PRN (16:21)
[2020-10-12] MEDS ORDERED: Acetaminophen 500 MG TAB PO SCH (18:00)
[2020-10-12] MEDS ORDERED: traMADol HCl 50 MG TAB PO SCH ×4 (18:00→22:00)
[2020-10-12] MEDS: Acetaminophen/Codeine 30-300mg Tablet PO PRN (18:12)
[2020-10-12] MEDS: Acetaminophen/Codeine 30-300mg Tablet PO SCH ×2 (18:12→23:56)
[2020-10-12] MEDS: Nicotine 14 MG PATCH TD SCH (21:15)
[2020-10-13] MEDS: Acetaminophen/Codeine 30-300mg Tablet PO SCH ×5 (05:11→22:29)
[2020-10-13] MEDS: Acetaminophen 325 MG TAB PO SCH (05:12)
[2020-10-13] MEDS: CEFAZOLIN 2 GM in Premix Bag 1 BAG IVPB SCH ×3 (05:12→21:04)
[2020-10-13] MEDS: Acetaminophen/Codeine 30-300mg Tablet PO PRN (06:20)
[2020-10-13] MEDS: Cyclobenzaprine 10 MG TAB PO PRN ×3 (06:22→21:31)
[2020-10-13] MEDS: Gabapentin 300 MG CAP PO SCH ×3 (09:38→21:04)
[2020-10-13] MEDS: Ibuprofen 200 MG TAB PO SCH ×3 (09:38→22:29)
[2020-10-13] MEDS: Famotidine 20 MG TAB PO SCH ×2 (09:39→21:04)
[2020-10-13] MEDS: Polyethylene Glycol 3350 17 GM Packet PO SCH (09:39)
[2020-10-13] MEDS: Docusate Sodium 100 MG/10 ML UDCUP PO SCH ×2 (09:39→21:04)
[2020-10-13] MEDS: Enoxaparin Sodium 40 MG/0.4 ML SYRINGE SC SCH (09:39)
[2020-10-13] MEDS: Senokot 8.6 MG TAB PO SCH (09:39)
[2020-10-13] MEDS ORDERED: Acetaminophen/Codeine 30-300mg Tablet PO PRN (11:00)
[2020-10-13] MEDS: Nicotine 14 MG PATCH TD SCH (21:04)
[2020-10-14] MEDS: Acetaminophen/Codeine 30-300mg Tablet PO SCH ×6 (03:12→22:56)
[2020-10-14] MEDS: Cyclobenzaprine 10 MG TAB PO PRN ×3 (03:12→19:35)
[2020-10-14] MEDS: CEFAZOLIN 2 GM in Premix Bag 1 BAG IVPB SCH ×3 (06:14→21:31)
[2020-10-14] MEDS: Polyethylene Glycol 3350 17 GM Packet PO SCH (08:22)
[2020-10-14] MEDS: Docusate Sodium 100 MG/10 ML UDCUP PO SCH (08:22)
[2020-10-14] MEDS: Famotidine 20 MG TAB PO SCH (08:22)
[2020-10-14] MEDS: Enoxaparin Sodium 40 MG/0.4 ML SYRINGE SC SCH (08:22)
[2020-10-14] MEDS: Senokot 8.6 MG TAB PO SCH (08:22)
[2020-10-14] MEDS: Gabapentin 300 MG CAP PO SCH ×3 (08:23→19:35)
[2020-10-14] MEDS: Ibuprofen 200 MG TAB PO SCH ×3 (08:23→22:57)
[2020-10-14 10:37] LABS: #Eosinphils 0.2 thou/uL (0.0-0.7); #Lymphocytes 1.7 thou/uL (1.20-3.40); #Monocytes 1.4 thou/uL (0.11-0.59); #Neutrophils 8.6 thou/uL (1.40-6.50); %Basophils 0.3 % (0.0-1.0); %Eosinophils 1.5 % (0.0-10.0); %Lymphocytes 13.9 % (21.0-51.0); %Monocytes 11.9 % (0.0-10.0); %Neutrophils 72.4 % (42.0-75.0); Hemoglobin 10.1 g/dL (14.0-18.0); Mean Corpuscular HGB CONC 31.7 g/dL (32.0-36.0); Mean Corpuscular Hemoglobin 28.5 pg (27.0-31.0); Mean Corpuscular Volume 89.9 fL (78.0-98.0); Mean Platelet Volume 6.6 fL (7.4-10.4); Platelet Count 385 thou/uL (130-400); RBC Distribution Width 12.2 % (11.5-14.5); Red Blood Cell (RBC) Count 3.53 mill/uL (4.70-6.10); White Blood Cell (WBC) Count 11.9 thou/uL (4.8-10.8)
[2020-10-14 10:56] LABS: Anion Gap 13 mmol/L (10-20); BUN (Urea Nitrogen) 10 mg/dL (8.9-20.6); Calc. Creatinine Clearance 226 mL/min (70-130); Calcium 9.4 mg/dL (7.8-10.44); Carbon Dioxide 28 mmol/L (22-29); Chloride 99 mmol/L (98-107); Glucose 111 mg/dL (70-105); Phosphorus 2.7 mg/dL (2.3-4.7); Potassium 3.7 mmol/L (3.5-5.1); Sodium 136 mmol/L (136-145)
[2020-10-14] MEDS: Docusate 100 MG CAP PO SCH (19:35)
[2020-10-14] MEDS: Nicotine 14 MG PATCH TD SCH (21:31)
[2020-10-15] MEDS: Acetaminophen/Codeine 30-300mg Tablet PO SCH ×6 (03:30→23:06)
[2020-10-15] MEDS: Gabapentin 300 MG CAP PO SCH ×3 (08:01→20:03)
[2020-10-15] MEDS: Ibuprofen 200 MG TAB PO SCH ×3 (08:02→23:05)
[2020-10-15] MEDS: Senokot 8.6 MG TAB PO SCH ×2 (08:02→09:21)
[2020-10-15] MEDS: Polyethylene Glycol 3350 17 GM Packet PO SCH (08:02)
[2020-10-15] MEDS: Docusate 100 MG CAP PO SCH ×2 (08:02→20:03)
[2020-10-15] MEDS: Enoxaparin Sodium 40 MG/0.4 ML SYRINGE SC SCH (08:02)
[2020-10-15] MEDS: Nicotine 14 MG PATCH TD SCH (21:09)
[2020-10-16] MEDS: Calcium Carbonate 500 MG ChewTAB PO PRN
[2020-10-16] MEDS: Acetaminophen/Codeine 30-300mg Tablet PO SCH ×6 (03:11→22:02)
[2020-10-16] MEDS: Docusate 100 MG CAP PO SCH ×2 (09:09→20:12)
[2020-10-16] MEDS: Ibuprofen 200 MG TAB PO SCH ×3 (09:09→23:41)
[2020-10-16] MEDS: Gabapentin 300 MG CAP PO SCH ×3 (09:09→20:12)
[2020-10-16] MEDS: Polyethylene Glycol 3350 17 GM Packet PO SCH (09:10)
[2020-10-16] MEDS: Senokot 8.6 MG TAB PO SCH (09:10)
[2020-10-16] MEDS: Enoxaparin Sodium 40 MG/0.4 ML SYRINGE SC SCH (09:17)
[2020-10-16] MEDS: Sodium Chloride 0.9% 1,000 ML IV SCH (20:15)
[2020-10-16] MEDS: Nicotine 14 MG PATCH TD SCH (21:58)
[2020-10-16] MEDS: Cyclobenzaprine 10 MG TAB PO PRN (22:03)
[2020-10-17] MEDS: Acetaminophen/Codeine 30-300mg Tablet PO SCH ×6 (03:54→23:10)
[2020-10-17] MEDS: Sodium Chloride 0.9% 1,000 ML IV SCH ×3 (05:26→20:30)
[2020-10-17 05:43] LABS: #Basophils 0.1 thou/uL (0.0-0.2); #Eosinphils 0.4 thou/uL (0.0-0.7); #Lymphocytes 2.7 thou/uL (1.20-3.40); #Monocytes 1.6 thou/uL (0.11-0.59); #Neutrophils 8.6 thou/uL (1.40-6.50); %Basophils 0.5 % (0.0-1.0); %Eosinophils 2.7 % (0.0-10.0); %Lymphocytes 20.2 % (21.0-51.0); %Neutrophils 64.6 % (42.0-75.0); Hemoglobin 10.3 g/dL (14.0-18.0); Mean Corpuscular HGB CONC 32.8 g/dL (32.0-36.0); Mean Corpuscular Hemoglobin 29.3 pg (27.0-31.0); Mean Corpuscular Volume 89.4 fL (78.0-98.0); Mean Platelet Volume 6.3 fL (7.4-10.4); Platelet Count 579 thou/uL (130-400); RBC Distribution Width 12.4 % (11.5-14.5); Red Blood Cell (RBC) Count 3.53 mill/uL (4.70-6.10); White Blood Cell (WBC) Count 13.3 thou/uL (4.8-10.8)
[2020-10-17 05:57] LABS: Anion Gap 15 mmol/L (10-20); BUN (Urea Nitrogen) 15 mg/dL (8.9-20.6); Calc. Creatinine Clearance 220 mL/min (70-130); Calcium 9.3 mg/dL (7.8-10.44); Carbon Dioxide 25 mmol/L (22-29); Chloride 100 mmol/L (98-107); Glucose 109 mg/dL (70-105); Potassium 4.7 mmol/L (3.5-5.1); Sodium 135 mmol/L (136-145)
[2020-10-17] MEDS ORDERED: Morphine 2 MG/ML VIAL SLOW IVP PRN (07:52)
[2020-10-17] MEDS: Gabapentin 300 MG CAP PO SCH ×3 (09:25→20:24)
[2020-10-17] MEDS: Docusate 100 MG CAP PO SCH ×2 (09:30→20:24)
[2020-10-17] MEDS: Ibuprofen 200 MG TAB PO SCH ×3 (09:30→23:10)
[2020-10-17] MEDS: Senokot 8.6 MG TAB PO SCH (09:31)
[2020-10-17] MEDS: Polyethylene Glycol 3350 17 GM Packet PO SCH (09:31)
[2020-10-17] MEDS ORDERED: Fentanyl 100 MCG/2 ML VIAL ONE ×5 (13:00→17:30)
[2020-10-17] MEDS ORDERED: Midazolam HCl 2 mg/2 ml Vial ONE (13:00)
[2020-10-17] MEDS ORDERED: Lidocaine 2% Jelly 5 ML TUBE ONE (13:00)
[2020-10-17] MEDS ORDERED: Lidocaine 1% PF 5 ML VIAL ONE (13:35)
[2020-10-17] MEDS ORDERED: PROPOFOL 200 MG/20 ML VIAL ONE (13:35)
[2020-10-17] MEDS ORDERED: Dexamethasone 20 MG/5 ML VIAL ONE (13:35)
[2020-10-17] MEDS ORDERED: Ondansetron PF 4 MG/2 ML Vial ONE (13:35)
[2020-10-17] MEDS ORDERED: Labetalol HCl 100 MG/20 ML VIAL ONE (13:35)
[2020-10-17] MEDS ORDERED: HYDROmorphone 2 MG/ML VIAL ONE (13:50)
[2020-10-17] MEDS ORDERED: Promethazine HCl 25 MG/ML VIAL IM PRN (16:46)
[2020-10-17] MEDS ORDERED: Promethazine HCl 25 MG/ML VIAL SLOW IVP PRN (16:46)
[2020-10-17] MEDS ORDERED: Ondansetron HCl/PF 4 MG/2 ML Vial IVP PRN (16:46)
[2020-10-17] MEDS ORDERED: HYDROmorphone 2 MG/ML VIAL SLOW IVP PRN (16:46)
[2020-10-17] MEDS: Cyclobenzaprine 10 MG TAB PO PRN (20:24)
[2020-10-17] MEDS: hydrALAZINE 20 MG/ML VIAL SLOW IVP PRN (21:02)
[2020-10-17] MEDS: CEFAZOLIN 2 GM in Premix Bag 1 BAG IVPB SCH (21:02)
[2020-10-17] MEDS: Nicotine 14 MG PATCH TD SCH (21:34)
[2020-10-18] MEDS: Acetaminophen/Codeine 30-300mg Tablet PO SCH ×6 (02:48→23:30)
[2020-10-18] MEDS: Sodium Chloride 0.9% 1,000 ML IV SCH ×3 (06:00→23:34)
[2020-10-18] MEDS: CEFAZOLIN 2 GM in Premix Bag 1 BAG IVPB SCH (06:21)
[2020-10-18] MEDS: Ibuprofen 200 MG TAB PO SCH ×3 (09:00→23:30)
[2020-10-18] MEDS: Senokot 8.6 MG TAB PO SCH (09:02)
[2020-10-18] MEDS: Gabapentin 300 MG CAP PO SCH ×3 (09:02→20:18)
[2020-10-18] MEDS: Polyethylene Glycol 3350 17 GM Packet PO SCH (09:03)
[2020-10-18] MEDS: Docusate 100 MG CAP PO SCH ×2 (09:03→20:18)
[2020-10-18] MEDS: Enoxaparin Sodium 30 MG/0.3 ML SYRINGE SC SCH ×2 (09:04→20:18)
[2020-10-18] MEDS ORDERED: Morphine 4 MG/ML VIAL SLOW IVP SCH (11:15)
[2020-10-18] MEDS ORDERED: Acetaminophen/Codeine 30-300mg Tablet PO SCH (13:00)
[2020-10-18] MEDS: Calcium Carbonate 500 MG ChewTAB PO PRN (21:19)
[2020-10-18] MEDS: Nicotine 14 MG PATCH TD SCH (23:34)
[2020-10-19] MEDS: Acetaminophen/Codeine 30-300mg Tablet PO SCH ×4 (03:23→14:31)
[2020-10-19] MEDS: Sodium Chloride 0.9% 1,000 ML IV SCH ×2 (06:39→14:14)
[2020-10-19] MEDS: Gabapentin 300 MG CAP PO SCH ×2 (07:52→14:32)
[2020-10-19] MEDS: Cyclobenzaprine 10 MG TAB PO PRN ×2 (07:52→14:31)
[2020-10-19] MEDS: Docusate 100 MG CAP PO SCH (07:53)
[2020-10-19] MEDS: Ibuprofen 200 MG TAB PO SCH (07:53)
[2020-10-19] MEDS: Senokot 8.6 MG TAB PO SCH (07:53)
[2020-10-19] MEDS: Enoxaparin Sodium 30 MG/0.3 ML SYRINGE SC SCH (07:54)
[2020-10-19] MEDS: Polyethylene Glycol 3350 17 GM Packet PO SCH (07:56)
[2020-10-19 11:58] VITALS: BP 150/83; TEMP 98.4
[2020-10-19] MEDS ORDERED: cloNIDine 0.1 MG TAB PO SCH (12:00)
== END 2020-10-19 15:07 | DRG 493 ==
LOC: ERS 17:55 → SURG A 18:51 → EEVIPCON 18:51 → SURG A 22:50
PROVIDERS: ADMIT Surgery; ATTEND Surgery
PROC: 3E0234Z Introduction of Serum, Toxoid and Vaccine into Muscle, Percutaneous Approach (ICD-10-PCS; 2020-10-08)
PROC: 0QSG35Z Reposition Right Tibia with External Fixation Device, Percutaneous Approach (ICD-10-PCS; 2020-10-10)
PROC: 0KNS0ZZ Release Right Lower Leg Muscle, Open Approach (ICD-10-PCS; 2020-10-10)
PROC: 0QSG04Z Reposition Right Tibia with Internal Fixation Device, Open Approach (ICD-10-PCS; principal; 2020-10-17)
DX: S82.141A Displaced bicondylar fracture of right tibia, initial encounter for closed fracture (principal); Z23 Encounter for immunization; Z20.822 Contact with and (suspected) exposure to COVID-19; T79.A21A Traumatic compartment syndrome of right lower extremity, initial encounter; F17.210 Nicotine dependence, cigarettes, uncomplicated; S82.241A Displaced spiral fracture of shaft of right tibia, initial encounter for closed fracture; E66.9 Obesity, unspecified; V00.841A Fall from standing electric scooter, initial encounter; Z90.49 Acquired absence of other specified parts of digestive tract; Z68.33 Body mass index [BMI] 33.0-33.9, adult
CPT/HCPCS: 29505; 36415; 70450; 71045; 71260; 72125; 72170; 74177; 76000; 80048; 80053; 81003; 83605; 83690; 83735; 84100; 85025; 86850; 86900; 86901; 87635; 90471; 90714; 93005; 96374; 96375; C1713; C1769; G0390; J0360; J0690; J1100; J1170; J1650; J2175; J2250; J2270; J2405; J2704; J3010; J7050; Q9967; U0003; U0005

== ENCOUNTER 2020-11-11 10:57 | Inpatient (IN) | payer OTHER ==
[2020-11-11 14:02] LABS: #Eosinphils 0.3 thou/uL (0.0-0.7); #Lymphocytes 1.9 thou/uL (1.20-3.40); #Monocytes 0.8 thou/uL (0.11-0.59); #Neutrophils 3.9 thou/uL (1.40-6.50); %Basophils 0.6 % (0.0-1.0); %Eosinophils 3.9 % (0.0-10.0); %Lymphocytes 27.3 % (21.0-51.0); %Neutrophils 57.2 % (42.0-75.0); Hemoglobin 10.8 g/dL (14.0-18.0); Mean Corpuscular HGB CONC 31.8 g/dL (32.0-36.0); Mean Corpuscular Hemoglobin 27.7 pg (27.0-31.0); Mean Platelet Volume 6.5 fL (7.4-10.4); Platelet Count 383 thou/uL (130-400); RBC Distribution Width 15.6 % (11.5-14.5); Red Blood Cell (RBC) Count 3.92 mill/uL (4.70-6.10); White Blood Cell (WBC) Count 6.9 thou/uL (4.8-10.8)
[2020-11-11 14:42] VITALS: BMI 33.2
[2020-11-11] MEDS ORDERED: Heparin 1,000 UNITS/ML VIAL ONE (15:32)
[2020-11-11] MEDS: HYDROcodone/Acetaminophen 5/325 mg Tablet PO PRN ×2 (20:13→23:45)
[2020-11-11] MEDS ORDERED: Cyclobenzaprine 10 MG TAB PO PRN (20:30)
[2020-11-11] MEDS ORDERED: Polyethylene Glycol 3350 17 GM Packet PO PRN (20:31)
[2020-11-11] MEDS ORDERED: Senokot 8.6 MG TAB PO PRN (20:32)
[2020-11-11] MEDS: Metoprolol Tartrate 25 MG TAB PO SCH (21:13)
[2020-11-11] MEDS: Gabapentin 300 MG CAP PO SCH (21:13)
[2020-11-11] MEDS: Ibuprofen 200 MG TAB PO SCH (23:41)
[2020-11-12] MEDS: HYDROcodone/Acetaminophen 5/325 mg Tablet PO PRN ×2 (05:54→20:17)
[2020-11-12 06:41] LABS: SARS-CoV-2 PCR by NAA Not Detected (NotDetected)
[2020-11-12] MEDS: Gabapentin 300 MG CAP PO SCH ×3 (08:37→20:18)
[2020-11-12] MEDS: Ibuprofen 200 MG TAB PO SCH ×3 (08:37→23:56)
[2020-11-12] MEDS: Metoprolol Tartrate 25 MG TAB PO SCH ×2 (08:37→20:18)
[2020-11-12] MEDS: Fish Oil 1,000 MG CAP PO SCH (08:39)
[2020-11-12] MEDS: Ferrous Sulfate 325 MG TAB PO SCH ×2 (08:39→16:07)
[2020-11-12] MEDS ORDERED: SUGAMMADEX SODIUM 500 MG/5 ML VIAL ONE (12:04)
[2020-11-12] MEDS ORDERED: Midazolam HCl 2 mg/2 ml Vial ONE (12:04)
[2020-11-12] MEDS ORDERED: Fentanyl 100 MCG/2 ML VIAL ONE ×2 (12:04→12:29)
[2020-11-12] MEDS ORDERED: Famotidine/PF 20 mg/2ml Vial ONE (12:04)
[2020-11-12] MEDS ORDERED: Ondansetron PF 4 MG/2 ML Vial ONE (13:02)
[2020-11-12] MEDS ORDERED: Metoclopramide HCl 10 MG/2 ML VIAL ONE (13:02)
[2020-11-12] MEDS ORDERED: Ketorolac Tromethamine 30 MG/ML VIAL ONE (13:02)
[2020-11-12] MEDS ORDERED: PROPOFOL 200 MG/20 ML VIAL ONE (13:02)
[2020-11-12] MEDS ORDERED: Dexamethasone 20 MG/5 ML VIAL ONE (13:02)
[2020-11-12] MEDS ORDERED: Rocuronium Bromide 10 MG/ML (10ML VIAL) ONE (13:02)
[2020-11-12] MEDS ORDERED: Lidocaine 1% PF 5 ML VIAL ONE (13:02)
[2020-11-12] MEDS ORDERED: TETANUS AND DIPHTHERIA TOX/PF 0.5 ML DISP.SYRIN IM SCH (13:45)
[2020-11-12] MEDS ORDERED: Promethazine HCl 25 MG/ML VIAL IM PRN (13:56)
[2020-11-12] MEDS ORDERED: Promethazine HCl 25 MG/ML VIAL SLOW IVP PRN (13:56)
[2020-11-12] MEDS ORDERED: PACU-Morphine 4MG/ML VIAL SLOW IVP PRN (13:56)
[2020-11-12] MEDS ORDERED: Ondansetron HCl/PF 4 MG/2 ML Vial IVP PRN (13:56)
[2020-11-12] MEDS: CEFAZOLIN 2 GM in Premix Bag 1 BAG IVPB SCH ×2 (18:15→23:56)
[2020-11-13] MEDS: HYDROcodone/Acetaminophen 5/325 mg Tablet PO PRN ×3 (02:28→23:21)
[2020-11-13] MEDS: Gabapentin 300 MG CAP PO SCH ×3 (08:32→20:17)
[2020-11-13] MEDS: Metoprolol Tartrate 25 MG TAB PO SCH ×2 (08:32→20:17)
[2020-11-13] MEDS: Ibuprofen 200 MG TAB PO SCH ×2 (08:32→17:22)
[2020-11-13] MEDS: Fish Oil 1,000 MG CAP PO SCH (08:33)
[2020-11-13] MEDS: Ferrous Sulfate 325 MG TAB PO SCH ×2 (08:33→17:21)
[2020-11-13] MEDS: CEFAZOLIN 2 GM in Premix Bag 1 BAG IVPB SCH (08:33)
[2020-11-14] MEDS: Ibuprofen 200 MG TAB PO SCH ×3 (00:08→15:21)
[2020-11-14] MEDS: HYDROcodone/Acetaminophen 5/325 mg Tablet PO PRN ×4 (03:52→22:28)
[2020-11-14] MEDS: Gabapentin 300 MG CAP PO SCH ×3 (07:52→20:26)
[2020-11-14] MEDS: Fish Oil 1,000 MG CAP PO SCH (07:52)
[2020-11-14] MEDS: Ferrous Sulfate 325 MG TAB PO SCH ×2 (07:53→18:14)
[2020-11-14] MEDS: Metoprolol Tartrate 25 MG TAB PO SCH ×2 (07:53→20:26)
[2020-11-14] MEDS: tiZANidine HCl 4 MG TAB PO PRN (09:02)
[2020-11-14] MEDS: Morphine 2 MG/ML VIAL SLOW IVP PRN (11:55)
[2020-11-15] MEDS: Ferrous Sulfate 325 MG TAB PO SCH ×2 (08:07→18:27)
[2020-11-15] MEDS: Ibuprofen 200 MG TAB PO SCH ×3 (08:07→15:35)
[2020-11-15] MEDS: Fish Oil 1,000 MG CAP PO SCH (08:07)
[2020-11-15] MEDS: HYDROcodone/Acetaminophen 5/325 mg Tablet PO PRN ×2 (08:09→21:29)
[2020-11-15] MEDS: Gabapentin 300 MG CAP PO SCH ×3 (08:10→20:06)
[2020-11-15] MEDS: Metoprolol Tartrate 25 MG TAB PO SCH ×2 (08:10→20:07)
[2020-11-15] MEDS: Vancomycin 1.5 GRAM/300 ML BAG 1.5 GM in Premix Bag 1 BAG IVPB SCH (20:08)
[2020-11-16] MEDS: Ibuprofen 200 MG TAB PO SCH ×3 (02:39→16:02)
[2020-11-16] MEDS: Fish Oil 1,000 MG CAP PO SCH (08:26)
[2020-11-16] MEDS: HYDROcodone/Acetaminophen 5/325 mg Tablet PO PRN ×3 (08:26→18:49)
[2020-11-16] MEDS: Ferrous Sulfate 325 MG TAB PO SCH ×2 (08:26→16:02)
[2020-11-16] MEDS: Gabapentin 300 MG CAP PO SCH ×3 (08:27→20:15)
[2020-11-16] MEDS: Metoprolol Tartrate 25 MG TAB PO SCH ×2 (08:27→20:15)
[2020-11-16] MEDS: Vancomycin 1.5 GRAM/300 ML BAG 1.5 GM in Premix Bag 1 BAG IVPB SCH ×2 (08:28→20:21)
[2020-11-16] MEDS: Morphine 2 MG/ML VIAL SLOW IVP PRN (11:27)
[2020-11-16] MEDS: tiZANidine HCl 4 MG TAB PO PRN (15:20)
[2020-11-16] MEDS: Piperacillin/Tazobactam 3.375 GM in Sodium Chloride 0.9% 100 ML IVPB SCH ×2 (16:01→20:17)
[2020-11-17] MEDS: Ibuprofen 200 MG TAB PO SCH ×3 (03:50→16:17)
[2020-11-17] MEDS: Piperacillin/Tazobactam 3.375 GM in Sodium Chloride 0.9% 100 ML IVPB SCH ×4 (03:53→20:35)
[2020-11-17] MEDS: HYDROcodone/Acetaminophen 5/325 mg Tablet PO PRN ×4 (03:59→18:37)
[2020-11-17 07:52] LABS: #Basophils 0.1 thou/uL (0.0-0.2); #Eosinphils 0.5 thou/uL (0.0-0.7); #Lymphocytes 2.1 thou/uL (1.20-3.40); #Monocytes 0.9 thou/uL (0.11-0.59); #Neutrophils 4.4 thou/uL (1.40-6.50); %Basophils 0.9 % (0.0-1.0); %Eosinophils 6.5 % (0.0-10.0); %Monocytes 11.3 % (0.0-10.0); %Neutrophils 55.3 % (42.0-75.0); Hemoglobin 12.9 g/dL (14.0-18.0); Mean Corpuscular Hemoglobin 27.8 pg (27.0-31.0); Mean Platelet Volume 6.7 fL (7.4-10.4); Platelet Count 321 thou/uL (130-400); RBC Distribution Width 15.5 % (11.5-14.5); Red Blood Cell (RBC) Count 4.64 mill/uL (4.70-6.10)
[2020-11-17] MEDS: Metoprolol Tartrate 25 MG TAB PO SCH ×2 (08:09→20:35)
[2020-11-17] MEDS: Gabapentin 300 MG CAP PO SCH ×3 (08:09→20:34)
[2020-11-17] MEDS: Fish Oil 1,000 MG CAP PO SCH (08:09)
[2020-11-17] MEDS: Ferrous Sulfate 325 MG TAB PO SCH ×2 (08:09→16:17)
[2020-11-17] MEDS: Vancomycin 1.5 GRAM/300 ML BAG 1.5 GM in Premix Bag 1 BAG IVPB SCH ×2 (08:10→20:35)
[2020-11-17 08:11] LABS: Vancomycin, Trough 11.1 ug/mL
[2020-11-17] MEDS: Morphine 2 MG/ML VIAL SLOW IVP PRN (08:18)
[2020-11-17] MEDS: tiZANidine HCl 4 MG TAB PO PRN (11:40)
[2020-11-18] MEDS: Ibuprofen 200 MG TAB PO SCH ×4 (00:10→23:38)
[2020-11-18] MEDS: Piperacillin/Tazobactam 3.375 GM in Sodium Chloride 0.9% 100 ML IVPB SCH ×4 (03:12→21:07)
[2020-11-18] MEDS: Gabapentin 300 MG CAP PO SCH ×3 (07:54→21:05)
[2020-11-18] MEDS: Ferrous Sulfate 325 MG TAB PO SCH ×2 (07:55→16:52)
[2020-11-18] MEDS: HYDROcodone/Acetaminophen 5/325 mg Tablet PO PRN ×3 (07:56→22:45)
[2020-11-18] MEDS: Metoprolol Tartrate 25 MG TAB PO SCH ×2 (07:56→21:05)
[2020-11-18] MEDS: Fish Oil 1,000 MG CAP PO SCH (07:56)
[2020-11-18] MEDS: Vancomycin 1.5 GRAM/300 ML BAG 1.5 GM in Premix Bag 1 BAG IVPB SCH ×2 (09:34→21:07)
[2020-11-19] MEDS: Piperacillin/Tazobactam 3.375 GM in Sodium Chloride 0.9% 100 ML IVPB SCH ×4 (03:23→20:57)
[2020-11-19] MEDS: Ferrous Sulfate 325 MG TAB PO SCH ×2 (08:35→17:14)
[2020-11-19] MEDS: Ibuprofen 200 MG TAB PO SCH ×2 (08:36→15:44)
[2020-11-19] MEDS: Fish Oil 1,000 MG CAP PO SCH (08:36)
[2020-11-19] MEDS: HYDROcodone/Acetaminophen 5/325 mg Tablet PO PRN ×3 (08:37→21:08)
[2020-11-19] MEDS: Metoprolol Tartrate 25 MG TAB PO SCH ×2 (08:38→20:57)
[2020-11-19] MEDS: Gabapentin 300 MG CAP PO SCH ×3 (08:38→20:56)
[2020-11-19] MEDS: Vancomycin 1.5 GRAM/300 ML BAG 1.5 GM in Premix Bag 1 BAG IVPB SCH (08:39)
[2020-11-19 09:17] LABS: Vancomycin, Trough 11.1 ug/mL
[2020-11-19] MEDS: Vancomycin 1 GM in Premix Bag 1 BAG IVPB SCH (17:14)
[2020-11-19] MEDS: ALPRAZolam 0.25 MG TAB PO PRN (22:30)
[2020-11-20] MEDS: Vancomycin 1 GM in Premix Bag 1 BAG IVPB SCH ×3 (00:07→16:08)
[2020-11-20] MEDS: Ibuprofen 200 MG TAB PO SCH ×3 (00:07→15:10)
[2020-11-20] MEDS: Piperacillin/Tazobactam 3.375 GM in Sodium Chloride 0.9% 100 ML IVPB SCH ×4 (04:12→20:13)
[2020-11-20 06:17] LABS: Calc. Creatinine Clearance 207 mL/min (70-130)
[2020-11-20] MEDS: Fish Oil 1,000 MG CAP PO SCH (09:47)
[2020-11-20] MEDS: HYDROcodone/Acetaminophen 5/325 mg Tablet PO PRN ×2 (09:48→20:13)
[2020-11-20] MEDS: Ferrous Sulfate 325 MG TAB PO SCH ×2 (09:48→16:07)
[2020-11-20] MEDS: Gabapentin 300 MG CAP PO SCH ×3 (09:48→20:13)
[2020-11-20] MEDS: Metoprolol Tartrate 25 MG TAB PO SCH ×2 (09:48→20:12)
[2020-11-20] MEDS: Morphine 4 MG/ML VIAL SLOW IVP PRN (10:26)
[2020-11-20] MEDS: ALPRAZolam 0.25 MG TAB PO PRN (15:15)
[2020-11-20 16:30] LABS: Vancomycin, Trough 14.6 ug/mL
[2020-11-20] MEDS ORDERED: ALPRAZolam 0.25 MG TAB PO SCH (21:15)
[2020-11-20] MEDS: ALPRAZolam 0.25 MG TAB PO SCH (21:33)
[2020-11-21] MEDS: Vancomycin 1 GM in Premix Bag 1 BAG IVPB SCH ×3 (00:43→17:30)
[2020-11-21] MEDS: Ibuprofen 200 MG TAB PO SCH ×3 (00:43→15:25)
[2020-11-21] MEDS: Piperacillin/Tazobactam 3.375 GM in Sodium Chloride 0.9% 100 ML IVPB SCH ×2 (02:38→09:16)
[2020-11-21] MEDS: Metoprolol Tartrate 25 MG TAB PO SCH ×2 (09:17→20:22)
[2020-11-21] MEDS: Gabapentin 300 MG CAP PO SCH ×3 (09:17→20:22)
[2020-11-21] MEDS: ALPRAZolam 0.25 MG TAB PO SCH ×2 (09:17→20:22)
[2020-11-21] MEDS: Ferrous Sulfate 325 MG TAB PO SCH ×2 (09:17→17:30)
[2020-11-21] MEDS: Fish Oil 1,000 MG CAP PO SCH (09:17)
[2020-11-21] MEDS: HYDROcodone/Acetaminophen 5/325 mg Tablet PO PRN (09:22)
[2020-11-21] MEDS: Ciprofloxacin 500 MG TAB PO SCH (20:22)
[2020-11-21] MEDS: tiZANidine HCl 4 MG TAB PO PRN (21:07)
[2020-11-22] MEDS: Ibuprofen 200 MG TAB PO SCH ×3 (00:38→15:30)
[2020-11-22] MEDS: Vancomycin 1 GM in Premix Bag 1 BAG IVPB SCH ×3 (00:39→17:33)
[2020-11-22] MEDS ORDERED: HYDROcodone/Acetaminophen 5/325 mg Tablet PO PRN (01:49)
[2020-11-22] MEDS: HYDROcodone/Acetaminophen 5/325 mg Tablet PO PRN ×4 (01:58→15:36)
[2020-11-22] MEDS: Ciprofloxacin 500 MG TAB PO SCH ×2 (06:01→19:44)
[2020-11-22] MEDS: ALPRAZolam 0.25 MG TAB PO SCH ×2 (08:58→19:45)
[2020-11-22] MEDS: Metoprolol Tartrate 25 MG TAB PO SCH ×2 (08:59→19:45)
[2020-11-22] MEDS: Fish Oil 1,000 MG CAP PO SCH (08:59)
[2020-11-22] MEDS: Ferrous Sulfate 325 MG TAB PO SCH ×2 (08:59→17:33)
[2020-11-22] MEDS: Gabapentin 300 MG CAP PO SCH ×3 (08:59→19:44)
[2020-11-22] MEDS: Morphine 4 MG/ML VIAL SLOW IVP PRN (10:25)
[2020-11-23] MEDS: HYDROcodone/Acetaminophen 5/325 mg Tablet PO PRN ×3 (00:02→16:10)
[2020-11-23] MEDS: Ciprofloxacin 500 MG TAB PO SCH ×2 (05:33→20:13)
[2020-11-23] MEDS: Vancomycin 1 GM in Premix Bag 1 BAG IVPB SCH ×3 (08:20→19:15)
[2020-11-23] MEDS: Ferrous Sulfate 325 MG TAB PO SCH ×2 (08:20→18:47)
[2020-11-23] MEDS: Gabapentin 300 MG CAP PO SCH ×3 (08:20→20:13)
[2020-11-23] MEDS: Fish Oil 1,000 MG CAP PO SCH (08:21)
[2020-11-23] MEDS: Metoprolol Tartrate 25 MG TAB PO SCH ×2 (08:21→20:13)
[2020-11-23] MEDS: Ibuprofen 200 MG TAB PO SCH ×3 (08:21→16:11)
[2020-11-23] MEDS: ALPRAZolam 0.25 MG TAB PO SCH ×2 (08:21→20:13)
[2020-11-23] MEDS: tiZANidine HCl 4 MG TAB PO PRN (08:23)
[2020-11-23 16:51] LABS: Vancomycin, Trough 8.3 ug/mL
[2020-11-23] MEDS: VANCOMYCIN 1.25 GM/250 ML BAG 1.25 GM in Premix Bag 1 BAG IVPB SCH (18:47)
[2020-11-24] MEDS: Ibuprofen 200 MG TAB PO SCH ×4 (00:12→23:26)
[2020-11-24] MEDS: VANCOMYCIN 1.25 GM/250 ML BAG 1.25 GM in Premix Bag 1 BAG IVPB SCH ×5 (00:13→23:27)
[2020-11-24] MEDS: Ciprofloxacin 500 MG TAB PO SCH ×2 (06:00→19:43)
[2020-11-24] MEDS: Fish Oil 1,000 MG CAP PO SCH (08:43)
[2020-11-24] MEDS: ALPRAZolam 0.25 MG TAB PO SCH ×2 (08:44→19:43)
[2020-11-24] MEDS: Metoprolol Tartrate 25 MG TAB PO SCH ×2 (08:44→19:44)
[2020-11-24] MEDS: Gabapentin 300 MG CAP PO SCH ×3 (08:44→19:43)
[2020-11-24] MEDS: Ferrous Sulfate 325 MG TAB PO SCH ×2 (08:44→17:09)
[2020-11-24] MEDS: HYDROcodone/Acetaminophen 5/325 mg Tablet PO PRN ×2 (19:43→23:29)
[2020-11-24] MEDS: tiZANidine HCl 4 MG TAB PO PRN (19:43)
[2020-11-25] MEDS: VANCOMYCIN 1.25 GM/250 ML BAG 1.25 GM in Premix Bag 1 BAG IVPB SCH ×3 (05:38→17:50)
[2020-11-25] MEDS: Ciprofloxacin 500 MG TAB PO SCH ×2 (05:38→20:33)
[2020-11-25] MEDS: HYDROcodone/Acetaminophen 5/325 mg Tablet PO PRN ×2 (05:40→20:38)
[2020-11-25] MEDS: Ibuprofen 200 MG TAB PO SCH ×2 (08:06→17:50)
[2020-11-25] MEDS: ALPRAZolam 0.25 MG TAB PO SCH ×2 (08:07→20:34)
[2020-11-25] MEDS: Fish Oil 1,000 MG CAP PO SCH (08:07)
[2020-11-25] MEDS: Metoprolol Tartrate 25 MG TAB PO SCH ×2 (08:07→20:34)
[2020-11-25] MEDS: Ferrous Sulfate 325 MG TAB PO SCH ×2 (08:07→17:50)
[2020-11-25] MEDS: Gabapentin 300 MG CAP PO SCH ×3 (08:07→20:34)
[2020-11-25] MEDS: Morphine 4 MG/ML VIAL SLOW IVP PRN (09:44)
[2020-11-26] MEDS: VANCOMYCIN 1.25 GM/250 ML BAG 1.25 GM in Premix Bag 1 BAG IVPB SCH ×2 (00:15→05:58)
[2020-11-26] MEDS: Ibuprofen 200 MG TAB PO SCH ×3 (00:16→15:43)
[2020-11-26] MEDS: HYDROcodone/Acetaminophen 5/325 mg Tablet PO PRN ×4 (00:21→20:34)
[2020-11-26] MEDS: Ciprofloxacin 500 MG TAB PO SCH ×2 (05:58→20:35)
[2020-11-26] MEDS: Ferrous Sulfate 325 MG TAB PO SCH ×2 (08:02→15:41)
[2020-11-26] MEDS: Fish Oil 1,000 MG CAP PO SCH (08:02)
[2020-11-26] MEDS: ALPRAZolam 0.25 MG TAB PO SCH ×2 (08:03→20:35)
[2020-11-26] MEDS: Metoprolol Tartrate 25 MG TAB PO SCH ×2 (08:03→20:35)
[2020-11-26] MEDS: Gabapentin 300 MG CAP PO SCH ×3 (08:03→20:34)
[2020-11-26] MEDS: Vancomycin HCl 1.25 GM in Sodium Chloride 0.9% 250 ML 250 ML IVPB SCH ×2 (11:41→17:35)
[2020-11-27] MEDS: Vancomycin HCl 1.25 GM in Sodium Chloride 0.9% 250 ML 250 ML IVPB SCH ×2 (00:43→05:49)
[2020-11-27] MEDS: Ibuprofen 200 MG TAB PO SCH ×3 (00:48→15:37)
[2020-11-27] MEDS: HYDROcodone/Acetaminophen 5/325 mg Tablet PO PRN ×2 (02:51→07:23)
[2020-11-27] MEDS: Ciprofloxacin 500 MG TAB PO SCH ×2 (05:49→21:50)
[2020-11-27] MEDS: Metoprolol Tartrate 25 MG TAB PO SCH ×2 (08:22→21:51)
[2020-11-27] MEDS: Gabapentin 300 MG CAP PO SCH ×3 (08:22→21:50)
[2020-11-27] MEDS: ALPRAZolam 0.25 MG TAB PO SCH ×2 (08:22→21:50)
[2020-11-27] MEDS: Fish Oil 1,000 MG CAP PO SCH (08:23)
[2020-11-27] MEDS: Ferrous Sulfate 325 MG TAB PO SCH ×2 (08:24→15:39)
[2020-11-27] MEDS: Morphine 4 MG/ML VIAL SLOW IVP PRN (10:06)
[2020-11-27] MEDS: VANCOMYCIN 1.25 GM/250 ML BAG 1.25 GM in Premix Bag 1 BAG IVPB SCH ×2 (11:52→17:05)
[2020-11-28] MEDS: Ibuprofen 200 MG TAB PO SCH ×4 (00:21→23:47)
[2020-11-28] MEDS: HYDROcodone/Acetaminophen 5/325 mg Tablet PO PRN ×5 (00:24→23:48)
[2020-11-28] MEDS: VANCOMYCIN 1.25 GM/250 ML BAG 1.25 GM in Premix Bag 1 BAG IVPB SCH ×3 (01:31→11:38)
[2020-11-28] MEDS: Ciprofloxacin 500 MG TAB PO SCH ×2 (05:32→20:09)
[2020-11-28] MEDS: ALPRAZolam 0.25 MG TAB PO SCH ×2 (07:54→20:09)
[2020-11-28] MEDS: Gabapentin 300 MG CAP PO SCH ×3 (07:54→20:09)
[2020-11-28] MEDS: Metoprolol Tartrate 25 MG TAB PO SCH ×2 (07:54→20:10)
[2020-11-28] MEDS: Fish Oil 1,000 MG CAP PO SCH (07:55)
[2020-11-28] MEDS: Ferrous Sulfate 325 MG TAB PO SCH ×2 (07:55→16:59)
[2020-11-28 11:27] LABS: Vancomycin, Trough 22.9 ug/mL
[2020-11-28] MEDS: Vancomycin 1 GM in Premix Bag 1 BAG IVPB SCH ×2 (17:00→23:46)
[2020-11-28] MEDS: tiZANidine HCl 4 MG TAB PO PRN (18:09)
[2020-11-29] MEDS: Vancomycin 1 GM in Premix Bag 1 BAG IVPB SCH ×3 (05:40→17:34)
[2020-11-29] MEDS: HYDROcodone/Acetaminophen 5/325 mg Tablet PO PRN ×2 (05:41→11:07)
[2020-11-29] MEDS: Ciprofloxacin 500 MG TAB PO SCH ×2 (05:41→20:18)
[2020-11-29 06:34] LABS: #Basophils 0.1 thou/uL (0.0-0.2); #Eosinphils 0.3 thou/uL (0.0-0.7); #Lymphocytes 2.3 thou/uL (1.20-3.40); #Monocytes 0.9 thou/uL (0.11-0.59); %Basophils 1.1 % (0.0-1.0); %Eosinophils 4.4 % (0.0-10.0); %Lymphocytes 30.5 % (21.0-51.0); %Neutrophils 52.1 % (42.0-75.0); Hemoglobin 12.8 g/dL (14.0-18.0); Mean Corpuscular HGB CONC 31.1 g/dL (32.0-36.0); Mean Corpuscular Hemoglobin 26.5 pg (27.0-31.0); Mean Corpuscular Volume 85.2 fL (78.0-98.0); Mean Platelet Volume 6.9 fL (7.4-10.4); Platelet Count 325 thou/uL (130-400); RBC Distribution Width 14.7 % (11.5-14.5); Red Blood Cell (RBC) Count 4.82 mill/uL (4.70-6.10); White Blood Cell (WBC) Count 7.6 thou/uL (4.8-10.8)
[2020-11-29] MEDS: Metoprolol Tartrate 25 MG TAB PO SCH ×2 (08:17→20:18)
[2020-11-29] MEDS: Ibuprofen 200 MG TAB PO SCH ×2 (08:17→15:25)
[2020-11-29] MEDS: Ferrous Sulfate 325 MG TAB PO SCH ×2 (08:17→17:33)
[2020-11-29] MEDS: Fish Oil 1,000 MG CAP PO SCH (08:17)
[2020-11-29] MEDS: Gabapentin 300 MG CAP PO SCH ×3 (08:17→20:18)
[2020-11-29] MEDS: ALPRAZolam 0.25 MG TAB PO SCH ×2 (08:17→20:18)
[2020-11-29] MEDS: Morphine 4 MG/ML VIAL SLOW IVP PRN (11:27)
[2020-11-30] MEDS: Ibuprofen 200 MG TAB PO SCH ×4 (00:26→23:57)
[2020-11-30] MEDS: Vancomycin 1 GM in Premix Bag 1 BAG IVPB SCH ×5 (00:26→23:58)
[2020-11-30] MEDS: HYDROcodone/Acetaminophen 5/325 mg Tablet PO PRN ×5 (00:33→21:28)
[2020-11-30] MEDS: Ciprofloxacin 500 MG TAB PO SCH ×2 (06:17→20:31)
[2020-11-30] MEDS: ALPRAZolam 0.25 MG TAB PO SCH ×2 (08:40→20:30)
[2020-11-30] MEDS: Fish Oil 1,000 MG CAP PO SCH (08:41)
[2020-11-30] MEDS: Gabapentin 300 MG CAP PO SCH ×3 (08:41→20:30)
[2020-11-30] MEDS: Ferrous Sulfate 325 MG TAB PO SCH ×2 (08:41→16:14)
[2020-11-30] MEDS: Metoprolol Tartrate 25 MG TAB PO SCH ×2 (08:42→20:30)
[2020-11-30] MEDS: tiZANidine HCl 4 MG TAB PO PRN (16:14)
[2020-12-01] MEDS: HYDROcodone/Acetaminophen 5/325 mg Tablet PO PRN ×4 (02:46→20:02)
[2020-12-01] MEDS: Vancomycin 1 GM in Premix Bag 1 BAG IVPB SCH ×3 (05:29→17:49)
[2020-12-01] MEDS: Ciprofloxacin 500 MG TAB PO SCH ×2 (05:29→20:01)
[2020-12-01] MEDS: Ferrous Sulfate 325 MG TAB PO SCH ×2 (08:54→15:53)
[2020-12-01] MEDS: Fish Oil 1,000 MG CAP PO SCH (08:54)
[2020-12-01] MEDS: Metoprolol Tartrate 25 MG TAB PO SCH ×2 (08:55→20:03)
[2020-12-01] MEDS: Gabapentin 300 MG CAP PO SCH ×3 (08:55→20:03)
[2020-12-01] MEDS: ALPRAZolam 0.25 MG TAB PO SCH ×2 (08:55→20:03)
[2020-12-01] MEDS: Ibuprofen 200 MG TAB PO SCH ×2 (08:55→15:45)
[2020-12-01 11:17] LABS: Vancomycin, Trough 16.8 ug/mL
[2020-12-01] MEDS ORDERED: HYDROcodone/Acetaminophen 5/325 mg Tablet PO PRN (23:50)
[2020-12-02] MEDS: Vancomycin 1 GM in Premix Bag 1 BAG IVPB SCH ×4 (00:05→18:10)
[2020-12-02] MEDS: Ibuprofen 200 MG TAB PO SCH ×3 (00:06→16:18)
[2020-12-02] MEDS: HYDROcodone/Acetaminophen 5/325 mg Tablet PO PRN ×5 (00:07→20:45)
[2020-12-02] MEDS: Ciprofloxacin 500 MG TAB PO SCH ×2 (06:21→20:45)
[2020-12-02] MEDS: Gabapentin 300 MG CAP PO SCH ×3 (08:18→20:45)
[2020-12-02] MEDS: Metoprolol Tartrate 25 MG TAB PO SCH ×2 (08:18→20:45)
[2020-12-02] MEDS: Fish Oil 1,000 MG CAP PO SCH (08:18)
[2020-12-02] MEDS: ALPRAZolam 0.25 MG TAB PO SCH ×2 (08:18→20:44)
[2020-12-02] MEDS: Ferrous Sulfate 325 MG TAB PO SCH ×2 (08:19→16:18)
[2020-12-02] MEDS: tiZANidine HCl 4 MG TAB PO PRN (20:52)
[2020-12-03] MEDS: Vancomycin 1 GM in Premix Bag 1 BAG IVPB SCH ×4 (00:43→17:37)
[2020-12-03] MEDS: Ibuprofen 200 MG TAB PO SCH ×3 (00:43→16:04)
[2020-12-03] MEDS: HYDROcodone/Acetaminophen 5/325 mg Tablet PO PRN ×4 (00:49→17:40)
[2020-12-03] MEDS: Ciprofloxacin 500 MG TAB PO SCH ×2 (05:14→20:04)
[2020-12-03] MEDS: Ferrous Sulfate 325 MG TAB PO SCH ×2 (08:21→16:04)
[2020-12-03] MEDS: ALPRAZolam 0.25 MG TAB PO SCH ×2 (08:21→20:05)
[2020-12-03] MEDS: Fish Oil 1,000 MG CAP PO SCH (08:21)
[2020-12-03] MEDS: Gabapentin 300 MG CAP PO SCH ×3 (08:21→20:04)
[2020-12-03] MEDS: Metoprolol Tartrate 25 MG TAB PO SCH ×2 (08:21→20:05)
[2020-12-03] MEDS ORDERED: Morphine 4 MG/ML VIAL ONE (10:39)
[2020-12-03] MEDS: tiZANidine HCl 4 MG TAB PO PRN (16:07)
[2020-12-04] MEDS: Ibuprofen 200 MG TAB PO SCH ×3 (00:12→15:22)
[2020-12-04] MEDS: Vancomycin 1 GM in Premix Bag 1 BAG IVPB SCH ×3 (00:12→11:58)
[2020-12-04] MEDS: HYDROcodone/Acetaminophen 5/325 mg Tablet PO PRN ×3 (00:13→19:48)
[2020-12-04] MEDS: tiZANidine HCl 4 MG TAB PO PRN ×3 (00:41→22:20)
[2020-12-04] MEDS: Ciprofloxacin 500 MG TAB PO SCH ×2 (06:36→19:43)
[2020-12-04] MEDS: Ferrous Sulfate 325 MG TAB PO SCH ×2 (09:13→17:14)
[2020-12-04] MEDS: Metoprolol Tartrate 25 MG TAB PO SCH ×2 (09:14→19:43)
[2020-12-04] MEDS: Fish Oil 1,000 MG CAP PO SCH (09:14)
[2020-12-04] MEDS: ALPRAZolam 0.25 MG TAB PO SCH ×2 (09:14→19:42)
[2020-12-04] MEDS: Gabapentin 300 MG CAP PO SCH ×3 (09:15→19:42)
[2020-12-04 11:57] LABS: Vancomycin, Trough 19.7 ug/mL
[2020-12-04] MEDS: VANCOMYCIN 1.25 GM/250 ML BAG 1.25 GM in Premix Bag 1 BAG IVPB SCH (19:41)
[2020-12-05] MEDS: Ibuprofen 200 MG TAB PO SCH ×3 (00:54→15:58)
[2020-12-05] MEDS: Ciprofloxacin 500 MG TAB PO SCH (05:02)
[2020-12-05] MEDS: VANCOMYCIN 1.25 GM/250 ML BAG 1.25 GM in Premix Bag 1 BAG IVPB SCH ×2 (05:02→11:26)
[2020-12-05] MEDS: Gabapentin 300 MG CAP PO SCH ×2 (08:59→15:57)
[2020-12-05] MEDS: ALPRAZolam 0.25 MG TAB PO SCH (08:59)
[2020-12-05] MEDS: Ferrous Sulfate 325 MG TAB PO SCH ×2 (08:59→15:57)
[2020-12-05] MEDS: Fish Oil 1,000 MG CAP PO SCH (08:59)
[2020-12-05] MEDS: Metoprolol Tartrate 25 MG TAB PO SCH (08:59)
[2020-12-05] MEDS: HYDROcodone/Acetaminophen 5/325 mg Tablet PO PRN ×2 (09:00→16:31)
[2020-12-05] MEDS: Morphine 4 MG/ML VIAL SLOW IVP PRN (13:48)
[2020-12-05 19:34] LABS: Vancomycin, Trough 13.2 ug/mL
[2020-12-05] MEDS: Vancomycin 1.5 GRAM/300 ML BAG 1.5 GM in Premix Bag 1 BAG IVPB SCH (20:19)
[2020-12-06] MEDS: Ibuprofen 200 MG TAB PO SCH ×4 (00:04→23:18)
[2020-12-06] MEDS: ALPRAZolam 0.25 MG TAB PO SCH ×3 (00:04→20:39)
[2020-12-06] MEDS: Gabapentin 300 MG CAP PO SCH ×4 (00:04→20:39)
[2020-12-06] MEDS: Ciprofloxacin 500 MG TAB PO SCH ×3 (00:04→20:39)
[2020-12-06] MEDS: Metoprolol Tartrate 25 MG TAB PO SCH ×3 (00:04→20:39)
[2020-12-06] MEDS: tiZANidine HCl 4 MG TAB PO PRN ×2 (00:07→23:45)
[2020-12-06] MEDS: Vancomycin 1.5 GRAM/300 ML BAG 1.5 GM in Premix Bag 1 BAG IVPB SCH ×3 (04:49→20:40)
[2020-12-06] MEDS: HYDROcodone/Acetaminophen 5/325 mg Tablet PO PRN ×3 (05:16→19:00)
[2020-12-06] MEDS: Ferrous Sulfate 325 MG TAB PO SCH ×2 (08:57→17:30)
[2020-12-06] MEDS: Fish Oil 1,000 MG CAP PO SCH (08:57)
[2020-12-06 19:29] LABS: Vancomycin, Trough 15.5 ug/mL
[2020-12-07] MEDS: Vancomycin 1.5 GRAM/300 ML BAG 1.5 GM in Premix Bag 1 BAG IVPB SCH ×3 (04:56→20:11)
[2020-12-07] MEDS: Ciprofloxacin 500 MG TAB PO SCH ×2 (04:57→20:12)
[2020-12-07] MEDS: HYDROcodone/Acetaminophen 5/325 mg Tablet PO PRN ×3 (07:57→20:14)
[2020-12-07] MEDS: Ibuprofen 200 MG TAB PO SCH ×3 (07:58→23:23)
[2020-12-07] MEDS: Ferrous Sulfate 325 MG TAB PO SCH ×2 (07:58→18:18)
[2020-12-07] MEDS: Fish Oil 1,000 MG CAP PO SCH (07:58)
[2020-12-07] MEDS: ALPRAZolam 0.25 MG TAB PO SCH ×2 (07:58→20:12)
[2020-12-07] MEDS: Gabapentin 300 MG CAP PO SCH ×3 (07:59→20:13)
[2020-12-07] MEDS: Metoprolol Tartrate 25 MG TAB PO SCH ×2 (07:59→20:12)
[2020-12-07] MEDS: Morphine 4 MG/ML VIAL SLOW IVP PRN (10:23)
[2020-12-07 19:26] LABS: Vancomycin, Trough 23.6 ug/mL
[2020-12-07] MEDS: tiZANidine HCl 4 MG TAB PO PRN (21:53)
[2020-12-08] MEDS: HYDROcodone/Acetaminophen 5/325 mg Tablet PO PRN ×4 (02:53→21:12)
[2020-12-08] MEDS: Ciprofloxacin 500 MG TAB PO SCH ×2 (05:44→21:12)
[2020-12-08] MEDS: Vancomycin 1 GM in Premix Bag 1 BAG IVPB SCH ×3 (05:44→21:12)
[2020-12-08] MEDS: Ibuprofen 200 MG TAB PO SCH ×3 (08:47→23:24)
[2020-12-08] MEDS: ALPRAZolam 0.25 MG TAB PO SCH ×2 (08:47→21:12)
[2020-12-08] MEDS: Fish Oil 1,000 MG CAP PO SCH (08:47)
[2020-12-08] MEDS: Gabapentin 300 MG CAP PO SCH ×3 (08:47→21:12)
[2020-12-08] MEDS: Metoprolol Tartrate 25 MG TAB PO SCH ×2 (08:48→21:12)
[2020-12-08] MEDS: Ferrous Sulfate 325 MG TAB PO SCH ×2 (08:48→16:16)
[2020-12-08] MEDS: tiZANidine HCl 4 MG TAB PO PRN (14:19)
[2020-12-09] MEDS: tiZANidine HCl 4 MG TAB PO PRN (01:12)
[2020-12-09] MEDS: HYDROcodone/Acetaminophen 5/325 mg Tablet PO PRN ×4 (02:09→19:15)
[2020-12-09] MEDS: Vancomycin 1 GM in Premix Bag 1 BAG IVPB SCH (05:11)
[2020-12-09] MEDS: Ciprofloxacin 500 MG TAB PO SCH ×2 (05:11→21:45)
[2020-12-09 06:08] LABS: Vancomycin, Trough 13.1 ug/mL
[2020-12-09] MEDS: Ferrous Sulfate 325 MG TAB PO SCH ×2 (08:26→16:22)
[2020-12-09] MEDS: Metoprolol Tartrate 25 MG TAB PO SCH ×2 (08:26→21:45)
[2020-12-09] MEDS: Gabapentin 300 MG CAP PO SCH ×3 (08:26→21:45)
[2020-12-09] MEDS: Fish Oil 1,000 MG CAP PO SCH (08:26)
[2020-12-09] MEDS: ALPRAZolam 0.25 MG TAB PO SCH ×2 (08:26→21:45)
[2020-12-09] MEDS: Ibuprofen 200 MG TAB PO SCH ×3 (08:27→23:00)
[2020-12-09] MEDS: VANCOMYCIN 1.25 GM/250 ML BAG 1.25 GM in Premix Bag 1 BAG IVPB SCH ×2 (14:50→22:45)
[2020-12-09 17:00] LABS: #Basophils 0.1 thou/uL (0.0-0.2); #Eosinphils 0.5 thou/uL (0.0-0.7); #Lymphocytes 2.2 thou/uL (1.20-3.40); #Monocytes 0.9 thou/uL (0.11-0.59); #Neutrophils 3.6 thou/uL (1.40-6.50); %Basophils 0.9 % (0.0-1.0); %Lymphocytes 30.2 % (21.0-51.0); %Monocytes 12.4 % (0.0-10.0); %Neutrophils 49.5 % (42.0-75.0); Hemoglobin 12.7 g/dL (14.0-18.0); Mean Corpuscular HGB CONC 31.7 g/dL (32.0-36.0); Mean Corpuscular Hemoglobin 26.8 pg (27.0-31.0); Mean Corpuscular Volume 84.5 fL (78.0-98.0); Platelet Count 332 thou/uL (130-400); RBC Distribution Width 14.6 % (11.5-14.5); Red Blood Cell (RBC) Count 4.75 mill/uL (4.70-6.10); White Blood Cell (WBC) Count 7.2 thou/uL (4.8-10.8)
[2020-12-09 17:26] LABS: ALT (SGPT) 52 U/L (8-55); AST (SGOT) 12 U/L (5-34); Albumin 4.2 g/dL (3.5-5.0); Alkaline Phosphatase 113 U/L (40-110); Anion Gap 14 mmol/L (10-20); BUN (Urea Nitrogen) 9 mg/dL (8.9-20.6); Bilirubin, Total 0.2 mg/dL (0.2-1.2); CRP (Inflammatory) 0.52 mg/dL (= or < 0.5); Calc. Creatinine Clearance 188 mL/min (70-130); Calcium 9.3 mg/dL (7.8-10.44); Carbon Dioxide 26 mmol/L (22-29); Chloride 102 mmol/L (98-107); Globulin 2.7 g/dL (2.4-3.5); Glucose 93 mg/dL (70-105); Potassium 4.7 mmol/L (3.5-5.1); Protein, Total 6.9 g/dL (6.0-8.3); Sodium 137 mmol/L (136-145)
[2020-12-10] MEDS: HYDROcodone/Acetaminophen 5/325 mg Tablet PO PRN ×3 (00:10→16:39)
[2020-12-10] MEDS: tiZANidine HCl 4 MG TAB PO PRN ×3 (00:10→21:20)
[2020-12-10] MEDS: Ciprofloxacin 500 MG TAB PO SCH ×3 (05:50→21:20)
[2020-12-10] MEDS: VANCOMYCIN 1.25 GM/250 ML BAG 1.25 GM in Premix Bag 1 BAG IVPB SCH ×5 (05:50→21:38)
[2020-12-10] MEDS: ALPRAZolam 0.25 MG TAB PO SCH ×3 (06:53→21:20)
[2020-12-10] MEDS: Metoprolol Tartrate 25 MG TAB PO SCH ×3 (06:53→21:20)
[2020-12-10] MEDS: Gabapentin 300 MG CAP PO SCH ×4 (06:53→21:37)
[2020-12-10] MEDS: Ibuprofen 200 MG TAB PO SCH ×3 (06:54→16:39)
[2020-12-10] MEDS: Ferrous Sulfate 325 MG TAB PO SCH ×2 (08:50→16:38)
[2020-12-10] MEDS: Fish Oil 1,000 MG CAP PO SCH (08:50)
[2020-12-10] MEDS: Morphine 4 MG/ML VIAL SLOW IVP PRN (11:01)
[2020-12-11] MEDS: Ibuprofen 200 MG TAB PO SCH ×3 (04:55→16:49)
[2020-12-11 05:58] LABS: Vancomycin, Trough 14.5 ug/mL
[2020-12-11] MEDS: VANCOMYCIN 1.25 GM/250 ML BAG 1.25 GM in Premix Bag 1 BAG IVPB SCH ×3 (06:25→21:45)
[2020-12-11] MEDS: Ciprofloxacin 500 MG TAB PO SCH ×2 (06:25→21:45)
[2020-12-11] MEDS: Fish Oil 1,000 MG CAP PO SCH (08:26)
[2020-12-11] MEDS: HYDROcodone/Acetaminophen 5/325 mg Tablet PO PRN ×2 (08:26→12:38)
[2020-12-11] MEDS: Gabapentin 300 MG CAP PO SCH ×3 (08:27→21:45)
[2020-12-11] MEDS: Metoprolol Tartrate 25 MG TAB PO SCH ×2 (08:27→21:45)
[2020-12-11] MEDS: Ferrous Sulfate 325 MG TAB PO SCH ×2 (08:27→16:49)
[2020-12-12] MEDS: tiZANidine HCl 4 MG TAB PO PRN (00:22)
[2020-12-12] MEDS: Ibuprofen 200 MG TAB PO SCH ×3 (00:22→15:50)
[2020-12-12] MEDS: Ciprofloxacin 500 MG TAB PO SCH ×2 (05:50→20:25)
[2020-12-12] MEDS: VANCOMYCIN 1.25 GM/250 ML BAG 1.25 GM in Premix Bag 1 BAG IVPB SCH ×2 (05:50→15:47)
[2020-12-12] MEDS: Gabapentin 300 MG CAP PO SCH ×3 (09:45→20:25)
[2020-12-12] MEDS: Ferrous Sulfate 325 MG TAB PO SCH ×2 (09:46→17:45)
[2020-12-12] MEDS: Metoprolol Tartrate 25 MG TAB PO SCH ×2 (09:46→20:25)
[2020-12-12] MEDS: Fish Oil 1,000 MG CAP PO SCH (09:46)
[2020-12-12] MEDS: Morphine 4 MG/ML VIAL SLOW IVP PRN (10:14)
[2020-12-12] MEDS ORDERED: HYDROcodone/Acetaminophen 5/325 mg Tablet PO PRN (12:39)
[2020-12-13] MEDS: VANCOMYCIN 1.25 GM/250 ML BAG 1.25 GM in Premix Bag 1 BAG IVPB SCH ×4 (00:01→21:22)
[2020-12-13] MEDS: Ibuprofen 200 MG TAB PO SCH ×4 (00:01→23:38)
[2020-12-13] MEDS: tiZANidine HCl 4 MG TAB PO PRN ×2 (00:03→16:09)
[2020-12-13] MEDS: HYDROcodone/Acetaminophen 5/325 mg Tablet PO PRN ×3 (00:03→23:39)
[2020-12-13] MEDS: Ciprofloxacin 500 MG TAB PO SCH ×2 (05:21→21:22)
[2020-12-13 06:16] LABS: Vancomycin, Trough 18.9 ug/mL
[2020-12-13] MEDS: Ferrous Sulfate 325 MG TAB PO SCH ×2 (08:21→17:39)
[2020-12-13] MEDS: Fish Oil 1,000 MG CAP PO SCH (08:22)
[2020-12-13] MEDS: Metoprolol Tartrate 25 MG TAB PO SCH ×2 (08:22→21:22)
[2020-12-13] MEDS: Gabapentin 300 MG CAP PO SCH ×3 (08:22→21:23)
[2020-12-13] MEDS: Morphine 4 MG/ML VIAL SLOW IVP PRN (11:51)
[2020-12-14] MEDS: Ciprofloxacin 500 MG TAB PO SCH ×2 (05:54→20:59)
[2020-12-14] MEDS: VANCOMYCIN 1.25 GM/250 ML BAG 1.25 GM in Premix Bag 1 BAG IVPB SCH ×3 (05:54→20:59)
[2020-12-14] MEDS: tiZANidine HCl 4 MG TAB PO PRN ×3 (06:01→23:49)
[2020-12-14] MEDS: HYDROcodone/Acetaminophen 5/325 mg Tablet PO PRN ×2 (06:01→11:04)
[2020-12-14] MEDS: Ibuprofen 200 MG TAB PO SCH ×3 (08:50→23:49)
[2020-12-14] MEDS: Ferrous Sulfate 325 MG TAB PO SCH ×2 (08:51→16:38)
[2020-12-14] MEDS: Gabapentin 300 MG CAP PO SCH ×3 (08:51→20:57)
[2020-12-14] MEDS: Fish Oil 1,000 MG CAP PO SCH (08:51)
[2020-12-14] MEDS: Metoprolol Tartrate 25 MG TAB PO SCH ×2 (08:51→20:59)
[2020-12-15] MEDS: VANCOMYCIN 1.25 GM/250 ML BAG 1.25 GM in Premix Bag 1 BAG IVPB SCH ×3 (05:46→21:54)
[2020-12-15] MEDS: Ciprofloxacin 500 MG TAB PO SCH ×2 (05:46→21:54)
[2020-12-15 06:30] LABS: Vancomycin, Trough 14.8 ug/mL
[2020-12-15] MEDS: Ferrous Sulfate 325 MG TAB PO SCH ×2 (08:12→17:23)
[2020-12-15] MEDS: Ibuprofen 200 MG TAB PO SCH ×2 (08:12→17:23)
[2020-12-15] MEDS: Gabapentin 300 MG CAP PO SCH ×3 (08:12→21:53)
[2020-12-15] MEDS: Fish Oil 1,000 MG CAP PO SCH (08:12)
[2020-12-15] MEDS: Metoprolol Tartrate 25 MG TAB PO SCH ×2 (08:13→21:54)
[2020-12-15] MEDS: tiZANidine HCl 4 MG TAB PO PRN (08:44)
[2020-12-15] MEDS ORDERED: HYDROcodone/Acetaminophen 5/325 mg Tablet PO PRN (09:18)
[2020-12-15] MEDS: HYDROcodone/Acetaminophen 5/325 mg Tablet PO PRN (14:04)
[2020-12-16] MEDS: Ibuprofen 200 MG TAB PO SCH ×4 (00:40→23:06)
[2020-12-16] MEDS: Ciprofloxacin 500 MG TAB PO SCH ×2 (05:25→20:08)
[2020-12-16] MEDS: VANCOMYCIN 1.25 GM/250 ML BAG 1.25 GM in Premix Bag 1 BAG IVPB SCH ×3 (05:25→23:06)
[2020-12-16] MEDS: HYDROcodone/Acetaminophen 5/325 mg Tablet PO PRN ×3 (05:29→17:17)
[2020-12-16] MEDS: Metoprolol Tartrate 25 MG TAB PO SCH ×2 (09:21→20:09)
[2020-12-16] MEDS: Ferrous Sulfate 325 MG TAB PO SCH ×2 (09:21→17:18)
[2020-12-16] MEDS: Fish Oil 1,000 MG CAP PO SCH (09:21)
[2020-12-16] MEDS: Gabapentin 300 MG CAP PO SCH ×3 (09:22→20:08)
[2020-12-16] MEDS: Morphine 4 MG/ML VIAL SLOW IVP PRN (11:46)
[2020-12-16] MEDS: tiZANidine HCl 4 MG TAB PO PRN (23:09)
[2020-12-17] MEDS: VANCOMYCIN 1.25 GM/250 ML BAG 1.25 GM in Premix Bag 1 BAG IVPB SCH ×2 (05:02→14:15)
[2020-12-17] MEDS: Ciprofloxacin 500 MG TAB PO SCH (05:02)
[2020-12-17 07:42] VITALS: BP 131/78; TEMP 97.3
[2020-12-17] MEDS: Gabapentin 300 MG CAP PO SCH ×2 (09:34→14:15)
[2020-12-17] MEDS: Fish Oil 1,000 MG CAP PO SCH (09:34)
[2020-12-17] MEDS: Metoprolol Tartrate 25 MG TAB PO SCH (09:34)
[2020-12-17] MEDS: Ferrous Sulfate 325 MG TAB PO SCH (09:34)
[2020-12-17] MEDS: Ibuprofen 200 MG TAB PO SCH ×2 (09:35→15:22)
[2020-12-17] MEDS: HYDROcodone/Acetaminophen 5/325 mg Tablet PO PRN ×2 (09:45→15:23)
[2020-12-17 13:29] LABS: Anion Gap 12 mmol/L (10-20); BUN (Urea Nitrogen) 13 mg/dL (8.9-20.6); Calc. Creatinine Clearance 184 mL/min (70-130); Calcium 9.5 mg/dL (7.8-10.44); Carbon Dioxide 26 mmol/L (22-29); Chloride 109 mmol/L (98-107); Glucose 117 mg/dL (70-105); Potassium 4.8 mmol/L (3.5-5.1); Sodium 142 mmol/L (136-145)
== END 2020-12-17 17:06 | disposition home or self-care (01) | DRG 501 ==
LOC: SURG A 11:29
PROVIDERS: ADMIT Orthopaedic Surgery; ATTEND Orthopaedic Surgery
PROC: 0JDN0ZZ Extraction of Right Lower Leg Subcutaneous Tissue and Fascia, Open Approach (ICD-10-PCS; 2020-11-12)
PROC: 02H633Z Insertion of Infusion Device into Right Atrium, Percutaneous Approach (ICD-10-PCS; principal; 2020-11-15)
PROC: B548ZZA Ultrasonography of Superior Vena Cava, Guidance (ICD-10-PCS; 2020-11-15)
PROC: 0QP Lower Bones, Removal (ICD-10-PCS; 2020-12-11)
DX: T84.622A Infection and inflammatory reaction due to internal fixation device of right tibia, initial encounter (principal); T81.31XA Disruption of external operation (surgical) wound, not elsewhere classified, initial encounter; S82.141K Displaced bicondylar fracture of right tibia, subsequent encounter for closed fracture with nonunion; Y83.1 Surgical operation with implant of artificial internal device as the cause of abnormal reaction of the patient, or of later complication, without mention of misadventure at the time of the procedure; B96.89 Other specified bacterial agents as the cause of diseases classified elsewhere; B95.62 Methicillin resistant Staphylococcus aureus infection as the cause of diseases classified elsewhere; Z20.822 Contact with and (suspected) exposure to COVID-19; Z23 Encounter for immunization; Z87.891 Personal history of nicotine dependence; Z79.899 Other long term (current) drug therapy; V00.148D Other scooter (nonmotorized) accident, subsequent encounter
CPT/HCPCS: 36415; 36569; 80048; 80053; 80202; 82565; 85025; 85652; 86140; 87070; 87077; 87186; 87205; C1751; J0690; J1100; J1644; J1885; J2250; J2270; J2405; J2543; J2704; J2765; J3010; J3370; J3490; J7050; S0028; U0003; U0005